=== PATIENT | female | born 1955 | race Caucasian/White ===

== ENCOUNTER → 2020-07-11 14:57 | Outpatient (BNVA) | payer OTHER, SELFPAY | PROVIDERS: Family Provider Nurse Practitioner Family; Visit Provider Nurse Practitioner Family | DX: Z20.828 Contact with and (suspected) exposure to other viral communicable diseases (principal); J22 Unspecified acute lower respiratory infection | CPT/HCPCS: 87635 ==

== ENCOUNTER → 2021-01-12 12:39 | Outpatient (BNVA) | payer MEDICARE, SELFPAY | PROVIDERS: Family Provider Nurse Practitioner Family; PCP Nurse Practitioner Family; Visit Provider Nurse Practitioner Family | DX: E55.9 Vitamin D deficiency, unspecified (principal); F32.9 Major depressive disorder, single episode, unspecified; J32.9 Chronic sinusitis, unspecified; Z79.899 Other long term (current) drug therapy; B00.2 Herpesviral gingivostomatitis and pharyngotonsillitis; B00.9 Herpesviral infection, unspecified; Z13.6 Encounter for screening for cardiovascular disorders; I10 Essential (primary) hypertension; K21.9 Gastro-esophageal reflux disease without esophagitis | CPT/HCPCS: 80053; 80061; 81003; 82306; 83036; 84439; 84443; 85025 ==

== ENCOUNTER 2022-01-12 14:32 | Outpatient (CLI) | payer MEDICARE, SELFPAY ==
--- NOTE | 2022-01-12 14:48 | MM_ITS ---
WS: [email or web address] SCREENING 3D TOMOSYNTHESIS DIGITAL MAMMOGRAM WITH CAD HISTORY: SCREENING COMPARISON: 03/26/2019 and 06/13/2017 Bilateral CC and MLO views submitted. Computer aided detection analyzed. Breast composition: There are scattered areas of fibroglandular density. Area of distortion and very subtle calcifications in the posterior upper outer quadrant of the RIGHT breast. There is additional benign 9 mm nodule in the LEFT breast posteriorly at 3:00. MM/[place] [id number] IMPRESSION: BI-RADS: 0-Incomplete: Need additional imaging evaluation FOLLOW UP: Need Additional Imaging RIGHT breast: Spot compression views (CC and MLO). True ML. Ultrasound to follo w if abnormality persists. First attempt spot compression views. If there are calcifications within this d istortion magnification view should be obtained also.
== END 2022-01-12 14:33 | disposition home or self-care (01) ==
PROVIDERS: PCP Nurse Practitioner Family; Visit Provider Nurse Practitioner Family
DX: Z12.31 Encounter for screening mammogram for malignant neoplasm of breast (principal)
CPT/HCPCS: 77063; 77067

== ENCOUNTER 2022-03-20 14:41 | Outpatient (CLI) | payer MEDICARE, SELFPAY ==
--- NOTE | 2022-03-20 14:53 | MM_ITS ---
WS: [email or web address] ADDITIONAL VIEWS RIGHT MAMMOGRAM WITH DIGITAL BREAST TOMOSYNTHESIS. HISTORY: Distortion and calcifications. COMPARISON: 01/12/2022, 03/26/2019 Notification views RIGHT breast in CC, MLO projections and true ML submitted with digital breast efrain synthesis and SM. There some very vague calcifications in the upper-outer quadrant of the RIGHT breast in a posterior d epth. These are very vague but stereotactic biopsy attempt is recommended. MM/[place] [id number] IMPRESSION: BI-RADS: 4-Suspicious Finding-Biopsy Should Be Considered FOLLOW UP: Biopsy Recommended Stereotactic biopsy recommended of RIGHT breast calcifications. These may not b e visible by stereotactic biopsy but should be attempted.
== END 2022-03-20 14:42 | disposition home or self-care (01) ==
PROVIDERS: Visit Provider Nurse Practitioner Family
DX: R92.8 Other abnormal and inconclusive findings on diagnostic imaging of breast (principal)
CPT/HCPCS: 77061

== ENCOUNTER 2022-04-10 12:19 | Outpatient (CLI) | payer MEDICARE, SELFPAY ==
--- NOTE | 2022-04-10 12:41 | MM_ITS ---
WS: [email or web address] Mammogram, limited. HISTORY: Suspicious calcifications, very vague RIGHT breast in the posterior depth. COMPARISON: 03/20/2022 and 01/12/2022. Unable to definitely localize these suspicious calcifications by stereotactic imaging for biopsy. The se calcifications are very vague and this was a concern upon the initial recommendation. Suggest 6 mo nth follow-up or if the patient requests localization and surgical removal. I explained these finding s in detail to the patient. MM/[place] [id number] IMPRESSION: BI-RADS 3. Recommend 6 month diagnostic RIGHT mammogram follow-up. Unable to localize the very vague calcifications in the posterior RIGHT breast for stereotactic biopsy .
== END 2022-04-10 12:20 | disposition home or self-care (01) ==
LOC: RAD 12:19
PROVIDERS: Visit Provider Nurse Practitioner
DX: R92.8 Other abnormal and inconclusive findings on diagnostic imaging of breast (principal)
CPT/HCPCS: 77061; 77065

== ENCOUNTER → 2022-07-16 16:04 | Outpatient (BNVA) | payer MEDICARE, SELFPAY | PROVIDERS: PCP Nurse Practitioner; Visit Provider Nurse Practitioner | DX: R50.9 Fever, unspecified (principal) | CPT/HCPCS: 87400 ==

== ENCOUNTER 2022-11-13 14:34 | Outpatient (CLI) | payer MEDICARE, SELFPAY ==
--- NOTE | 2022-11-13 14:45 | MM_ITS ---
WS: [email or web address] DIAGNOSTIC RIGHT DIGITAL TOMOSYNTHESIS MAMMOGRAPHY WITH CAD. HISTORY: follow up 6 month for calcifications. COMPARISON: 04/10/2022, 03/20/2022, 01/12/2022 Technique: CC, MLO and ML views. Magnification views RIGHT CC and MLO. Breast composition: There are scattered areas of fibroglandular density. Calcifications previously d escribed in the upper-outer quadrant of the RIGHT breast are very difficult to visualize. No increase in number or size of these calcifications. No distortion of soft tissue. MM/[place] [id number] IMPRESSION: BI-RADS: 3-Probably Benign FOLLOW UP: 6 Month Follow-up Patient to return in 6 months for bilateral mammogram. Magnification views can be obtained of the calcifications in the RIGHT breast. Very nonspecific and les s concerning on today's study.
== END 2022-11-13 14:35 | disposition home or self-care (01) ==
LOC: RAD 14:38
PROVIDERS: PCP Nurse Practitioner; Visit Provider Nurse Practitioner
DX: R92.8 Other abnormal and inconclusive findings on diagnostic imaging of breast (principal); R92.1 Mammographic calcification found on diagnostic imaging of breast
CPT/HCPCS: 77061; G0279

== ENCOUNTER → 2023-02-28 11:34 | Outpatient (BNVA) | payer MEDICARE, SELFPAY | PROVIDERS: PCP Nurse Practitioner; Visit Provider Nurse Practitioner | DX: I10 Essential (primary) hypertension (principal); Z79.899 Other long term (current) drug therapy; E55.9 Vitamin D deficiency, unspecified | CPT/HCPCS: 80053; 80061; 81000; 82306; 83036; 84443; 85025 ==

== ENCOUNTER 2023-08-20 11:03 | Outpatient (CLI) | payer MEDICARE, SELFPAY ==
--- NOTE | 2023-08-20 11:00 | MM_ITS ---
WS: [email or web address] DIAGNOSTIC BILATERAL DIGITAL BREAST TOMOSYNTHESIS MAMMOGRAPHY WITH CAD HISTORY: Follow-up calcifications RIGHT breast. COMPARISON: None available. TECHNIQUE: Bilateral craniocaudad, mediolateral oblique, and mediolateral views are submitted with to davin and ANURADHA. Magnification views RIGHT breast calcifications. Computer aided detection utilize d. Breast composition: There are scattered areas of fibroglandular density. The calcifications in the up per outer quadrant of the RIGHT breast are very difficult to visualize. These calcifications are stab le. There is no group or cluster of calcifications that identify with certainty. Stable 8 mm lobulate d mass lateral LEFT breast at 9:00. IMPRESSION: MM/[place] [id number] BI-RADS: 3-Probably Benign FOLLOW UP: 1 Year Follow-up Recommend additional magnification views in the calcifications upper outer quad rant of the RIGHT breast in 1 year. At this time these calcifications are extre raul vague and cannot be identified on all images.
== END 2023-08-20 11:04 | disposition home or self-care (01) ==
LOC: RAD 11:05
PROVIDERS: PCP Nurse Practitioner; Visit Provider Nurse Practitioner Family
DX: R92.8 Other abnormal and inconclusive findings on diagnostic imaging of breast (principal); R92.1 Mammographic calcification found on diagnostic imaging of breast
CPT/HCPCS: 77062; G0279

== ENCOUNTER → 2023-10-30 14:08 | Outpatient (BNVA) | payer MEDICARE, SELFPAY | PROVIDERS: PCP Nurse Practitioner; Visit Provider Nurse Practitioner Family | DX: E78.2 Mixed hyperlipidemia (principal); I10 Essential (primary) hypertension; E55.9 Vitamin D deficiency, unspecified; Z79.899 Other long term (current) drug therapy; D64.9 Anemia, unspecified | CPT/HCPCS: 80053; 80061; 81003; 82306; 82607; 82746; 83036; 83550; 84443; 85025 ==

== ENCOUNTER 2024-09-09 18:58 | Emergency (ER) | payer MEDICARE, SELFPAY ==
[2024-09-09 19:02] VITALS: BP 187/98; PULSE 80; RESP 18; TEMP 36.5; O2SAT 98; BMI 30.5
[2024-09-09] MEDS: tetracaine 0.5% Op Soln 4 mL Btl 1 DROP EYE-LEFT (20:07)
[2024-09-09] MEDS: fluorescein 1 mg Strip EYE-LEFT (20:08)
--- NOTE | 2024-09-09 20:41 | ED_ITS ---
HPI - Skin/Abscess/Foreign Bdy General: Chief complaint: Skin/Abscess/Foreign Body Stated complaint: Shingles on face into eye Time Seen by Provider: 09/09/24 20:07 Source: patient Mode of arrival: ambulatory Limitations: no limitations History of Present Illness: Patient presents emergency department today accompanied by her family for evaluation treatment of concerns for acute worsening and ocular involvement of shingles. Patient was seen and evaluated in the urgent care on 09/01 and appropriately diagnosed with onset of shingles rash to the left side of her face. She was started on valacyclovir 1 g 3 times a day as well as gabapentin. Patient was concerned as her left eye was becoming red and she was complaining of some visual haziness. They did warn her that if it was getting worse to be seen and reevaluated. She went back to the clinic today and the nurse practitioner told her she needed to come to the emergency department. Patient wears glasses but does not wear contact lenses. She also indicates she is having some left ear discomfort now without any active draining. Still complains of some low-grade fevers. Related Data Previous Rx's Medication Instructions Recorded albuterol sulfate 90 mcg/actuation 1 inh inhalation Q6H PRN shortness 08/14/23 aerosol inhaler (ProAir HFA) of breath or wheezing 30 days #8.5 grams fluticasone propionate 50 2 spray intranasal DAILY 30 days 11/06/23 mcg/actuation nasal #16 grams spray,suspension (Flonase Allergy Relief) ibuprofen 800 mg tablet 800 mg PO Q8H PRN pain 30 days #90 11/06/23 tabs losartan 25 mg tablet See Rx Instructions .Route 11/06/23 .COMPLEX #90 tabs omeprazole 40 mg capsule,delayed 40 mg PO DAILY 30 days #90 caps 11/06/23 release rosuvastatin 10 mg tablet (Crestor) 10 mg PO DAILY #90 tabs 11/06/23 valacyclovir 1 gram tablet See Rx Instructions PO DAILY #30 11/06/23 tabs ondansetron HCl 4 mg tablet 4 mg PO Q8H PRN nausea and 02/12/24 vomiting #10 tabs sucralfate 1 gram tablet (Carafate) 1 g PO BID reflux/heartburn #60 02/12/24 tabs citalopram 40 mg tablet See Rx Instructions .Route 03/30/24 .COMPLEX #30 tabs cholecalciferol (vitamin D3) 1,250 See Rx Instructions .Route 07/27/24 mcg (50,000 unit) capsule .COMPLEX #4 caps gabapentin 100 mg capsule 100 mg PO BEDTIME #30 caps 09/01/24 valacyclovir 1 gram tablet 1,000 mg PO TID #21 tabs 09/01/24 erythromycin 5 mg/gram (0.5 %) eye 0.5 inch ophthalmic (eye) Q6H #3.5 09/09/24 ointment (3.5 gram tube) grams gabapentin 300 mg capsule 300 mg PO Q8H 10 days #30 caps 09/09/24 Allergies Allergy/AdvReac Type Severity Reaction Status Date / Time ceftriaxone [From Rocephin] Allergy Intermediate swelling Verified 09/01/24 14:46 clarithromycin [From Biaxin] Allergy RASH Verified 09/01/24 14:46 Review of Systems General: Reports: 10 or more systems reviewed and unremarkable except in HPI and below PFSH ED PFSH: Medical History Herpes zoster virus infection of face and ear nerves Cough Shortness of breath Otitis media Abnormal mammogram of right breast Acute bacterial sinusitis Lower respiratory infection Mixed hyperlipidemia Hypertension screen Medication management 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 Viral respiratory infection Primary HSV infection of mouth Elevated hemoglobin A1c Melanoma Fatigue GERD (gastroesophageal reflux disease) Hypertension Depression Vitamin D deficiency Surgical History Status post cholecystectomy Status post hysterectomy Status post rotator cuff repair Status post tubal ligation Family History Other Diabetes Hypertension Social History Smoking and tobacco/nicotine status: never used tobacco/nicotine Alcohol intake: never Substance/Drug Use: never Physical Exam Const: COMMON NORMALS: no acute distress, patient oriented x3 and alert HENMT: COMMON NORMALS: normocephalic, atraumatic, hearing grossly normal bilaterally and moist oral mucous membranes HEAD & SCALP: normocephalic and atraumatic OTHER: Left TM is slightly erythematous but no bulging and no purulent accumulation noted. Patient has significant erythema affecting the anterior portion of the left EAC. No cerumen present. No obvious blistering or signs of draining in th e canal. Eye: OTHER: Patient has conjunctival injections noted in the left eye. Lower eyelid does have developing rash and bumps within the lash line. After tetracaine drops, patient's lids were everted without signs of any foreign material or internal styes. Fluorescein and Barclay lamp exam revealed no signs of any dendritic uptake or corneal ulceration. Neck/C-Spine: COMMON NORMALS: no JVD Lymph: OTHER: Patient with some enlarged and tender lymph nodes at the angle of the mandible below the left ear. Resp: COMMON NORMALS: normal respiratory effort, No retractions and No use of accessory muscles Cardio: COMMON NORMALS: no JVD, regular rate and regular rhythm RATE: regular rate RHYTHM: regular rhythm GI: COMMON NORMALS: Normal to inspection, nondistended, normoactive bowel sounds present : COMMON NORMALS: Yes no CVA tenderness BLADDER/KIDNEY EXAM: Yes no CVA tenderness Back/Pelvis: COMMON NORMALS: no CVA tenderness and thoraco-lumbar ROM normal Extremity: COMMON NORMALS: normal to inspection, full ROM and capillary refill normal Neuro: COMMON NORMALS: patient oriented x3 SENSORIUM/ORIENTATION: Yes alert Psych: COMMON NORMALS: mental status grossly normal, cooperative, normal affect and activity/motor behavior normal Course Vital Signs: Vital signs: Vital Signs Temperature 97.7 F 09/09/24 19:02 Pulse Rate 78 09/09/24 21:27 Respiratory Rate 18 09/09/24 19:02 Blood Pressure 191/88 09/09/24 21:27 Pulse Oximetry 91 09/09/24 21:27 Oxygen Delivery Me thod Room Air 09/09/24 19:02 MDM - Skin/Abscess/Foreign Bdy Medicial Decision Making Patient presents today with concerns of worsening rash to the left side of her face and redness of the eye. Patient states she was told she has shingles and has been taking her medication as prescribed but, admits she is not sure what is normal and not as this is her first outbreak of shingles. Explained to her that I do think she has some rash developing in her ear which, can happen with diane ngles. She also has some cervical lymphadenopathy around the inferior portion of her ear which I explained can be reactive to the infection as well. Given the patient's redness in the eye, we did perform a Barclay lamp examination. However, I do not see any uptake of the dye in dendritic fashion. However, I did reach out to ophthalmology and spoke with Helen GIFFORD with [facility] to discuss the patient's presentation here in the emergency department. He encouraged adding erythromycin more for soothing of the irritation of the conjunctiva but, patient should continue her antiviral therapy. Patient has an allergy to clarithromycin which she states she developed a rash in the past. We did discuss the potential for a reaction to erythroid myosin but, she is willing to try the ointment for her symptoms and will watch for any signs of sensitivity or allergy to the medication. She is to call the ophthalmology clinic first thing in the morning to schedule follow-up appointment. Patient verbalizes her understanding and agreement to treatment plan. Just prior to discharge, patient family was asking if they could increase her gabapentin. Patient confirms she is only on 100 mg at night before bed. As patient has been on this medication now for a few days, we can increase her dosing. As she still has the medication at home, discussed a 300 mg dose of gabapentin tonight. Patient can continue using her 100 mg tablets, 3 at a time to equal a 300 mg dose 2-3 times a day. I provided a prescription for gabapentin 300 mg capsules sent to her preferred pharmacy which she can pepper picker and continue to use when she runs out of her 100 mg capsules. Did discuss potential side effects of this medication. Family and patient verbalized understanding. Differential Diagnosis Likely herpes zoster; Unlikely abscess of skin or subcutaneous tissue, allergic reaction to drug, insect bites or impetigo No radiology studies performed this visit Discharge Plan Discharge Patient Disposition: Home Clinical Impression: Herpes zoster virus infection of face and ear nerves Condition: Stable Prescriptions: New erythromycin 5 mg/gram (0.5 %) ointment 0.5 inch ophthalmic (eye) Q6H Qty: 3.5 0RF gabapentin 300 mg capsule 300 mg PO Q8H 10 Days Qty: 30 0RF No Action ondansetron HCl 4 mg tablet 4 mg PO Q8H PRN (Reason: nausea and vomiting) Qty: 10 0RF sucralfate [Carafate] 1 gram tablet 1 g PO BID Qty: 60 5RF valacyclovir 1 gram tablet 1,000 mg PO TID Qty: 21 0RF gabapentin 100 mg capsule 100 mg PO BEDTIME Qty: 30 0RF albuterol sulfate [ProAir HFA] 90 mcg/actuation HFA aerosol inhaler 1 inh inhalation Q6H PRN (Reason: shortness of breath or wheezing) 30 Days Qty: 8.5 0RF fluticasone propionate [Flonase Allergy Relief] 50 mcg/actuation spray,suspension 2 spray INTRANASAL DAILY 30 Days Qty: 16 2RF Rx Instructions: administer into each nostril for 2 weeks, then 1 spray for 2 weeks, then PRN ibuprofen 800 mg tablet 800 mg PO Q8H PRN (Reason: pain) 30 Days Qty: 90 2RF losartan 25 mg tablet See Rx Instructions .ROUTE .COMPLEX Qty: 90 3RF Dose Instruction: Take 1 tablet by mouth once daily for 30 days Rx Instructions: Take 1 tablet by mouth once daily for 30 days omeprazole 40 mg capsule,delayed release(DR/EC) 40 mg PO DAILY 30 Days Qty: 90 3RF rosuvastatin [Crestor] 10 mg tablet 10 mg PO DAILY Qty: 90 0RF valacyclovir 1 gram tablet See Rx Instructions PO DAILY Qty: 30 5RF Rx Instructions: 1 tab daily during outbreak, and PRN PO daily; citalopram 40 mg tablet See Rx Instructions .ROUTE .COMPLEX Qty: 30 2RF Dose Instruction: Take 1 tablet by mouth once daily Rx Instructions: Take 1 tablet by mouth once daily cholecalciferol (vitamin D3) 1,250 mcg (50,000 unit) capsule See Rx Instructions .ROUTE .COMPLEX Qty: 4 0RF Dose Instruction: Take 1 capsule by mouth once a week Rx Instructions: Take 1 capsule by mouth once a week Discharge Orders: Discharge ED (Routine); Ordered 09/09/24 Ordered By: Katarzyna Jeronimo Referrals: Darek Rogers, ENVIRONMENTAL PROTECTION INSPECTOR [Primary Care Provider] - Discharge Diet: Usual diet Discharge Activity: Increase activity as tolerated Patient Instructions: Shingles (ED) Activity Restrictions/Additional Instructions: I agree to the original diagnosis of shingles that you received from the urgent care as well as your treatment plan. Unfortunately, as the shingles does affect your face, can also affect your eye and inside of your ear. I do think you are developing some redness inside of your ear consistent with a shingles rash. Fortunately, at this time, on your eye examination I do not see any signs of any ulcerations or herpetic dendrites on your cornea. I did reach out to our high school music teacher on-call was able to speak with Martín Cervantes PA-C with [facility] here in [facility]. He encourages you to continue to take your antiviral therapy and, recommended using erythromycin ointment for soothing and comfort of the conjunctival membrane. As we discussed, erythromycin is in the same family medications as clarithromycin which you have listed as a allergy/sensitivity in the past. I want you to carefully watch for any sudden swelling of your eyelids which could indicate a hypersensitivity reaction to this appointment. You need to be seen and reevaluated if you develop signs of a hypersensitivity to the medication here in the emergency department. Otherwise, I would like you to call the high school music teacher first thing in the morning to schedule your follow-up appointment. [facility] Martín Payne PA-C [id number] [facility] [id number] Stand Alone Forms: Work/School Release Coding Level of Care Code ED Convertible Top Installer for Shashi Panda
[2024-09-09] MEDS: erythromycin Op Oint 1 gm 1 APPLIC EYE-LEFT (21:01)
[2024-09-09 21:27] VITALS: BP 191/88; PULSE 78; O2SAT 91
== END 2024-09-09 21:30 | disposition home or self-care (01) ==
PROVIDERS: Emergency Provider Physician Assistant; PCP Nurse Practitioner Family
DX: B02.8 Zoster with other complications (principal); E78.2 Mixed hyperlipidemia; I10 Essential (primary) hypertension
CPT/HCPCS: 99283

== ENCOUNTER → 2024-11-10 11:56 | Outpatient (BNVA) | payer MEDICARE, SELFPAY | PROVIDERS: PCP Nurse Practitioner Family; Visit Provider Nurse Practitioner Family | DX: B00.9 Herpesviral infection, unspecified (principal); J32.9 Chronic sinusitis, unspecified; I10 Essential (primary) hypertension; E55.9 Vitamin D deficiency, unspecified; E78.2 Mixed hyperlipidemia; Z79.899 Other long term (current) drug therapy | CPT/HCPCS: 80053; 80061; 81003; 82306; 83036; 84443; 85025 ==

== ENCOUNTER → 2025-03-18 15:24 | Outpatient (BNVA) | payer MEDICARE, SELFPAY | PROVIDERS: PCP Nurse Practitioner Family; Visit Provider Nurse Practitioner Family | DX: N39.0 Urinary tract infection, site not specified (principal); Z79.899 Other long term (current) drug therapy | CPT/HCPCS: 81003; 87086 ==

== ENCOUNTER → 2025-05-12 09:39 | Outpatient (BNVA) | payer MEDICARE, SELFPAY | PROVIDERS: PCP Nurse Practitioner Family; Visit Provider Nurse Practitioner Family | DX: R10.12 Left upper quadrant pain (principal); R73.09 Other abnormal glucose; R68.89 Other general symptoms and signs | CPT/HCPCS: 74018; 80053; 81003; 82150; 83036; 83690; 85025; 87400; 87426 ==

== ENCOUNTER 2025-07-07 10:23 | Emergency (ER) | payer MEDICARE, SELFPAY ==
[2025-07-07 10:29] VITALS: BP 203/90; PULSE 89; RESP 18; TEMP 36.8; O2SAT 97
--- OUTSIDE RECORDS SUMMARY | 2025-07-07 10:29 | XMS_ITS | Encounter Summary ---
Author Organization [facility] Address [address] [place] [address] Care Team Providers Care Telephone Installer Name Role Phone Mendel Bonds MD Primary Care Provider [phone] Encounter Details Date Type Department Care Team (Late st Contact Info) Description 11/18/2002 Outpatient Historical [facility] Urology- [address]tr[address], 3[address] [place] [address] Jatinder Huddleston MD [address] [address] URINARY FREQUENCY (Primary Dx); URGE & STRESS MIXED INCONTINENCE; NOCTURIA; FEMALE GENITAL SYMPTOMS NOS Social History Tobacco Use Types Packs/Day Years Used Date Smoking Tobacco: Never Assessed Comments Unknown Sex and Gender Information Value Date Recorded Sex Assigned at Not on file 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
--- OUTSIDE RECORDS SUMMARY | 2025-07-07 10:29 | XMS_ITS | Encounter Summary ---
Author Organization [facility] Address [address] [place] [address] Care Team Providers Care French Translator Name Role Phone Mendel Bonds MD Primary Care Provider [phone] Encounter Details Date Type Department Care Team (Latest Contact Info) Description 09/28/2004 Outpatient Historical [facility] Medicine [address] [phone] Chelsea Chacon NP NO ADDRESS ON FILE ACUTE SINUSITIS NOS (Primary Dx) Social History Tobacco Use Types Packs/Day Years Used Date Smoking Tobacco: Never Assessed Comments Unknown Sex and Gender Information Value Date Recorded Sex Assigned at Not on file 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
--- OUTSIDE RECORDS SUMMARY | 2025-07-07 10:29 | XMS_ITS | Encounter Summary ---
Author Organization [facility] Address [address] [place] [address] Care Team Providers Care Sushi Chef Name Role Phone Mendel Bonds MD Primary Care Provider [phone] Encounter Details Date Type Department Care Team (Latest Contact Info) Description 09/28/2005 Outpatient Historical [facility] Family Medicine- [address] [place] [address] Chelsea Chacon NP NO ADDRESS ON FILE HERPETIC KARIN (Primary Dx) Social History Tobacco Use Types Packs/Day Years Used Date Smoking Tobacco: Never Assessed Comments Unknown Sex and Gender Information Value Date Recorded Sex Assigned at Not on file 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
--- OUTSIDE RECORDS SUMMARY | 2025-07-07 10:29 | XMS_ITS | Encounter Summary ---
Author Organization [facility] Address [address] [place] [address] Care Team Providers Care Clothing Presser Name Role Phone Mendel Bonds MD Primary Care Provider [phone] Encounter Details Date Type Department Care Team (Latest Contact Info) Description 04/18/2005 Outpatient Historical [facility] General and Trauma Surgery-[address] [place] [address] Anthony Cruz S, DO [address] [place] [address] Benign remy breast (Primary Dx) Social History Tobacco Use Types Packs/Day Years Used Date Smoking Tobacco: Never Assessed Comments Unknown Sex and Gender Information Value Date Recorded Sex Assigned at Not on file 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
--- OUTSIDE RECORDS SUMMARY | 2025-07-07 10:29 | XMS_ITS | Encounter Summary ---
Author Organization [facility] Address [address] [place] [address] Care Team Providers Care Chop Saw Operator Name Role Phone Mendel Bonds MD Primary Care Provider [phone] [phone] Encounter Details Date Type Department Care Team (Latest Contact Info) Description 01/05/2003 Outpatient Historical [facility] [address] [place] [address] [place] [address] Juan C Landaverde MD [address] [address] PREOP EXAM OTHER SPECIFIED (Primary Dx) Social History Tobacco Use Types Packs/Day Years Used Date Smoking Tobacco: Never Assessed Comments Unknown Sex and Gender Information Value Date Recorded Sex Assigned at Not on file 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
--- OUTSIDE RECORDS SUMMARY | 2025-07-07 10:29 | XMS_ITS | Encounter Summary ---
Author Organization [facility] Address [address] [place] [address] Care Team Providers Care Hogshead Stripper Name Role Phone Mendel Bonds MD Primary Care Provider [phone] Encounter Details Date Type Department Care Team (Latest Contact Info) Description 12/12/2004 Outpatient Historical [facility] Juan C Landaverde MD [address] [address] ROUTINE WEB CONTENT & SOCIAL MEDIA MANAGER EXAMINATION (Primary Dx) Social History Tobacco Use Types Packs/Day Years Used Date Smoking Tobacco: Never Assessed Comments Unknown Sex and Gender Information Value Date Recorded Sex Assigned at Not on file 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
--- OUTSIDE RECORDS SUMMARY | 2025-07-07 10:29 | XMS_ITS | Encounter Summary ---
Author Organization [facility] Address [address] [place] [address] Care Team Providers Care Office Automation Clerk Name Role Phone Mendel Bonds MD Primary Care Provider +1 -[phone] Encounter Details Date Type Department Care Team (Late st Contact Info) Description 02/13/2006 Outpatient Historical [facility] Refugio Moore [address] [place] [address] Connie Dykes MD [address] [place] [phone] Other Screening Mammogram (Primary Dx) Social History Tobacco Use Types Packs/Day Years Used Date Smoking Tobacco: Never Assessed Comments Unknown Sex and Gender Information Value Date Recorded Sex Assigned at Not on file 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
--- OUTSIDE RECORDS SUMMARY | 2025-07-07 10:29 | XMS_ITS | Encounter Summary ---
Author Organization [facility] Address [address] [place] [address] Care Team Providers Care Casino Floor Person Name Role Phone Mendel Bonds MD Primary Care Provider +1 [phone] Encounter Details Date Type Department Care Team (Late st Contact Info) Description 03/16/2010 Ancillary Orders [facility] Imaging External Read [address] [place] [address] Connie Dykes MD [address] [place] [phone] Screening Mammogram Social History Tobacco Use Types Packs/Day Years Used Date Smoking Tobacco: Never Alcohol Use Standard Drinks/Week Comments No 0 (1 standard drink = 0.6 oz pur e alcohol) Comments No Sex and Gender Information Value Date Recorded Sex Assigned at Not on file 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 The patient had a benign needle core biopsy on the left in Feb, 2005. Comparison is made with the prior exams of 02/13/06 and 02/17/07. No change is seen on the right. No suspicious calcifications are seen. However, the previously biopsied nodule upper outer on the left appears slightly more prominent and I would recommend further evaluation. This mammogram was also analyzed by the Computer Aided Detection system (CAD), R2 ImageChecker, Version 3.1. CONCLUSION: I would recommend the patient return initially for left breast ultrasound. Additional magnified views may be needed following the ultrasound if the nodule appears changed. Procedure Note Jen Flynn MD - 03/21/2010 SCREENING MAMMOGRAM ([facility]): 03/07/10 Bilateral craniocaudal and oblique views of the breasts show averagebreast density. The patient had a benign needle core biopsy on the leftin Feb, 2005. Comparison is made with the prior exams of 02/13/06 and02/17/07. No change is seen on the right. No suspicious calcificationsare seen. However, the previously biopsied nodule upper outer on the leftappears slightly more prominent and I would recommend furtherevaluation. This mammogram was also analyzed by the Computer Aided Detection system(CAD), R2 ImageChecker, Version 3.1. CONCLUSION: I would recommend the patient return initially for leftbreast ultrasound. Additional magnified views may be needed following theultrasound if the nodule appears changed. Connie Dykes MD MAMMO ORDERABLES Final Result documented in this encounter Visit Diagnoses Diagnosis Screening mammogram Other screening mammogram documented in this encounter Care Teams Casino Floor Person Relationship Specialty Start Date End Date Mendel Bonds MD [address] [phone] PCP - General Family Practice 12/31/17 documented as of this encounter
--- OUTSIDE RECORDS SUMMARY | 2025-07-07 10:29 | XMS_ITS | Encounter Summary ---
Author Organization [facility] Address [address] [place] [address] Care Team Providers Care Die Maintenance Technician Name Role Phone Mendel Bonds MD Primary Care Provider +1 [phone] Encounter Details Date Type Department Care Team (Latest Contact Info) Description 10/23/2002 Outpatient Historical [facility] Family Medicine- [address] [place] [address] Leonel Horowitz DO NO ADDRESS ON FILE ACUTE PHARYNGITIS (Primary Dx); HERPES SIMPLEX NOS Social History Tobacco Use Types Packs/Day Years Used Date Smoking Tobacco: Never Assessed Comments Unknown Sex and Gender Information Value Date Recorded Sex Assigned at Not on file Legal Sex Female 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
--- OUTSIDE RECORDS SUMMARY | 2025-07-07 10:29 | XMS_ITS | Encounter Summary ---
Author Organization [facility] Address [address] [place] [address] Care Team Providers Care Line Palletizer Name Role Phone Mendel Bonds MD Primary Care Provider +1 -[phone] Encounter Details Date Type Department Care Team (Latest Contact Info) Description 01/17/2006 Outpatient Historical [facility] Medicine [address] [address] Chelsea Chacon NP NO ADDRESS ON FILE Allergy, Unspecified not Elsewhere Classified (Primary Dx) Social History Tobacco Use Types Packs/Day Years Used Date Smoking Tobacco: Never Assessed Comments Unknown Sex and Gender Information Value Date Recorded Sex Assigned at Not on file Legal Sex Female 3:02 AM SAP BI DEVELOPER Gender Identity Not on file Sexual Orientation Not on file documented as of this encounter Plan of Treatment Not on file documented as of this encounter Visit Diagnoses Diagnosis Allergy, unspecified not elsewhere classified- Primary documented in this encounter Care Teams Line Palletizer Relationship Specialty Start Date End Date Mendel Bonds MD [address] [phone] PCP - General Family Practice 12/31/17 documented as of this encounter
--- OUTSIDE RECORDS SUMMARY | 2025-07-07 10:29 | XMS_ITS | Encounter Summary ---
Author Organization [facility] Address [address] [place] [address] Care Team Providers Care Siding Mechanic Name Role Phone Mendel Bonds MD Primary Care Provider +1 [phone] Encounter Details Date Type Department Care Team (Latest Contact Info) Description 05/21/2002 Outpatient Historical [facility] Medicine [address] [phone] Jose Alberto Becerril MD ABDOMINAL PAIN RUQ (Primary Dx) Social History Tobacco Use Types Packs/Day Years Used Date Smoking Tobacco: Never Assessed Comments Unknown Sex and Gender Information Value Date Recorded Sex Assigned at Not on file Legal Sex Female 3:02 AM LOST AND FOUND CLERK Gender Identity Not on file Sexual Orientation Not on file documented as of this encounter Plan of Treatment Not on file documented as of this encounter Visit Diagnoses Diagnosis Abdominal pain, right upper quadrant- Primary documented in this encounter Care Teams Siding Mechanic Relationship Specialty Start Date End Date Mendel Bonds MD [address] [phone] PCP - General Family Practice 12/31/17 documented as of this encounter
--- OUTSIDE RECORDS SUMMARY | 2025-07-07 10:29 | XMS_ITS | Clinical Summary ---
Author Organization [facility] Address [address] [place] [address] [address] [place] [address] Care Team Providers Care Shoulder Boner Name Role Phone Mendel Bonds MD Primary Care Provider +1 [phone] Allergies Active Allergy Reactions Criticality Noted Date Comments Atorvastatin Itching,Other (See Comments) Low 02/15 Clarithromycin Rash Low 08/16/2009 Medications pseudoephedrine (SUDAFED) 30 mg tabletIndications :Sinusitis, unspecified chronicity, unspecified location Take 2 Tablets (60 mg) by mouth every 6 hours as needed for Congestion. 20 Tablet 7 Active fexofenadine (MONA) 180 mg tabletIndications :Sinusitis, unspecified chronicity, unspecified location Take 1 Tablet (180 mg) by mouth daily. 30 Tablet 5 7 Active fluticasone (FLONASE) 50 mcg/spray Kiester, SuspensionIndicat ions:Sinusitis, unspecified chronicity, unspecified location Administer 1 Kiester in each nostril daily. 16 Gram 7 Active promethazine-dext romethorphan (PHENERGAN-DM) 6.25-15 mg/5 mL syrupIndications: Cough Take 5 mL by mouth every 4 hours as needed for Cough. 120 mL 1 8 Active citalopram (CeleXA) 20 mg tabletIndications :Anxiety disorder, unspecified type Take 1 Tablet (20 mg) by mouth daily at bedtime. 30 Tablet 11 8 Active acyclovir (ZOVIRAX) 200 mg capsuleIndication s:Herpes zoster without complication Take 2 Capsules (400 mg) by mouth daily. 60 Capsule 5 8 Active hydroCHLOROthiazi de 25 mg tabletIndications :Essential hypertension TAKE ONE TABLET (25MG) BY MOUTH ONCE DAILY. 90 Tablet 3 8 Active omeprazole (PriLOSEC) 20 mg Capsule, Delayed Release(E.C.)Edna cations:Gastroeso phageal reflux disease, esophagitis presence not specified TAKE ONE CAPSULE BY MOUTH ONCE DAILY. 30 Capsule 11 8 Active pravastatin (PRAVACHOL) 20 mg tablet Take 1 Tablet (20 mg) by mouth daily. 30 Tablet 3 8 Active pravastatin (PRAVACHOL) 20 mg tablet Take 1 Tablet (20 mg) by mouth daily. 30 Tablet 3 8 Active ibuprofen (MOTRIN) 800 mg tablet TAKE 1 TABLET BY MOUTH EVERY 8 HOURS NEEDED FOR PAIN 30 Tablet 2 8 Active Hospital, Clinic, or Other Facility Administered Medication Ordered Dose Route Frequency Start Date End Date Status methylPREDNISolone acetate (DEPO-Medrol) injection 80 mgIndications:Sciatica of left side 80 mg IM ONE TIME ONLY 02/08/2017 Active Active Problems Problem Noted Date Diagnosed Date History of melanoma 02/18/2018 Right shoulder pain 01/06/2016 Overview (01/06/2016): Per patient had a tear, and now has hardware HTN (hypertension) 08/20/2013 Skin lesion of left lower limb 08/10/2011 Hyperlipidemia 12/15/2010 GERD (gastroesophageal reflux disease) 1 Anxiety disorder 03/31/2010 Other abnormal Papanicolaou smear of vagina and vaginal HPV Family History Medical History Relation Name Comments Heart Disease Brother High Cholesterol Brother Heart Disease Father High Cholesterol Father Heart Disease Mother High Cholesterol Mother Breast Cancer Other 1 paunt Heart Disease Other 1 paunt Breast Cancer Other 2 Great maunt Breast Cancer Other 3 1st cousin pat. Colon Cancer Neg Hx Relation Name Status Comments Brother Father Mother Alive Other 1 paunt Other 2 Great maunt Alive Other 3 1st cousin pat. 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 Gender Identity Not on file Sexual Orientation Not on file Occupation Industry Job Start Date Job End Date Not on file Not on file Not on file Not on file Last Filed Vital Signs Vital Sign Reading Time Taken Comments Blood Pressure 137/82 02/13/2018 9:17 AM CDT Pulse 68 02/13/2018 9:17 AM CDT Temperature 36.4 C (97.5 F) 02/13/2018 9:17 AM CDT Respiratory Rate 14 02/13/2018 9:17 AM CDT Oxygen Saturation 93% 02/13/2018 9:17 AM CDT Inhaled Oxygen Concentration - - Weight 86.4 kg (190 lb 6.4 oz) 02/13/2018 9:17 A M CDT Height 160 cm (5' 3 ) 02/13/2018 9:17 AM CDT Body Mass Index 33.73 02/13/2018 9:17 AM CDT Plan of Treatment Health Maintenance Due Date Last Done Comments DTAP/TDAP/TD VACCINES (1 - Tdap) 1974 COLORECTAL SCREENING 2000 Colorectal Cancer Screening 2000 FIT-DNA Q 3 years 2000 FIT/FOBT Q 1 year 2000 Flex Sig/CT Colonography Q 5 years 2000 PNEUMOCOCCAL VACCINE 50+ YEA RS (1 of 1 - PCV) 2005 ZOSTER VACCINE (1 of 2) 2005 BREAST CANCER SCREENING 06/13/2018 06/13/20 17, 05/24/2017 (Previously completed), 05/24/2017, Additional history exists OSTEOPOROSIS SCREENING 2020 Preventative Visit- Commercial 10/07/2024 INFLUENZA VACCINE (#1) 2025 RSV VACCINE (60+ or ) (1 - 1-dose 75+ series) 2030 Procedures Procedure Name Priority Date/Time Associated Diagnosis Comments MAMMO DIAGNOSTIC UNI LEFT W OR WO CAD Routine 06/13/2017 Breast nodule from Last 3 Months or Most Recently Relevant to Health Maintenance Results * MAMMO DIAGNOSTIC UNI LEFT W OR WO CAD (06/13/2017) Anatomical Region Laterality Modality Breast Left Mammography Iliana Boyer EXPEDITIONARY FORCE COMBAT SKILLS MAMMO ORDERABLES Final Result from Last 3 Months or Most Recently Relevant to Health Maintenance Insurance BCBS ADMINISTRATIVE PAYOR Care Teams Shoulder Boner Relationship Specialty Start Date End Date Mendel Bonds MD [address] [phone] PCP - General Family Practice 12/31/17
--- OUTSIDE RECORDS SUMMARY | 2025-07-07 10:29 | XMS_ITS | Encounter Summary ---
Author Organization [facility] Address [address] [place] [address] Care Team Providers Care Air Conditioner Installer Helper Name Role Phone Mendel Bonds MD Primary Care Provider +1 -[phone] Encounter Details Date Type Department Care Team (Latest Contact Info) Description 02/07/2005 Outpatient Historical [facility] Medicine- [address] [place] [address] Chelsea Chacon NP NO ADDRESS ON FILE MYALGIA AND MYOSITIS NOS (Primary Dx); HYPERLIPIDEMIA NEC/NOS; DEPRESSIVE DISORDER NEC Social History Tobacco Use Types Packs/Day Years Used Date Smoking Tobacco: Never Assessed Comments Unknown Sex and Gender Information Value Date Recorded Sex Assigned at Not on file 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 Gender Identity Not on file Sexual Orientation Not on file documented as of this encounter Plan of Treatment Not on file documented as of this encounter Visit Diagnoses Diagnosis Myalgia and myositis, unspecified- Primary Mylagia and myositis, unspecified Other and unspecified hyperlipidemia Depressive disorder, not elsewhere classified documented in this encounter Care Teams Air Conditioner Installer Helper Relationship Specialty Start Date End Date Mendel Bonds MD [address] [facility] [address] [place] [phone] PCP - General Family Practice 12/31/17 documented as of this encounter
--- OUTSIDE RECORDS SUMMARY | 2025-07-07 10:29 | XMS_ITS | Encounter Summary ---
Author Organization [facility] Address [address] [facility] [place] [address] Care Team Providers Care Marketing Services Specialist Name Role Phone Mendel Bonds MD Primary Care Provider +1 -[phone] Encounter Details Date Type Department Care Team (Latest Contact Info) Description 02/09/2005 Outpatient Historical [facility] Family Medicine- [place] [address] [place] [address] Chelsea Chacon, IVY NO ADDRESS ON FILE HYPERLIPIDEMIA NEC/NOS (Primary Dx) Social History Tobacco Use Types Packs/Day Years Used Date Smoking Tobacco: Never Assessed Comments Unknown Sex and Gender Information Value Date Recorded Sex Assigned at Not on file Legal Sex Female 3: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 MANAGER Gender Identity Not on file Sexual Orientation Not on file documented as of this encounter Plan of Treatment Not on file documented as of this encounter Procedures Procedure Name Priority Date/Time Associated Diagnosis Comments CBC WITHOUT DIFFERENTIAL Routine 02/09/2005 8:42 PM CDT ALT Routine 02/09/2005 8:42 PM CDT TSH Routine 02/09/2005 8:42 PM CDT CK Routine 02/09/2005 8:42 PM CDT AMYLASE Routine 02/09/2005 8:42 PM CDT LIPID PANEL Routine 02/09/2005 8:42 PM CDT BASIC METABOLIC PANEL Routine 02/09/2005 8:42 PM CDT documented in this encounter Results * (ABNORMAL) CBC WITHOUT DIFFERENTIAL (02/09/2005 8:42 PM CDT) WBC 4.3(L) 4.5 - 11.0 K/ul INTERFACE SYSTEM RBC 5.04 4.20 - 5.40 Mil/ul INTERFACE SYSTEM HEMOGLOBIN 14.6 12.0 - 16.0 g/dL INTERFACE SYSTEM HEMATOCRIT 45.9 36.0 - 46.0 % INTERFACE SYSTEM MCV 91.1 84.0 - 103.0 Fl INTERFACE SYSTEM MCH 29.0 27.0 - 34.0 pg INTERFACE SYSTEM MCHC 31.8 30.0 - 35.0 g/dL INTERFACE SYSTEM RDW 13.8 11.0 - 14.5 percent(in active) INTERFACE SYSTEM PLATELETS 233 140 - 440 K/ul INTERFACE SYSTEM MPV 11.6 8.9 - 12.8 Fl INTERFACE SYSTEM NEUTROPHILS 61.6 42.2 - 75.2 percent(in active) INTERFACE SYSTEM LYMPHOCYTES 28.3 24.0 - 44.0 percent(in active) INTERFACE SYSTEM MONOCYTES 8.9 2.0 - 10.0 percent(in active) INTERFACE SYSTEM EOSINOPHILS 0.7 0.0 - 7.0 % INTERFACE SYSTEM BASOPHILS 0.5 0.0 - 1.0 percent(in active) INTERFACE SYSTEM NEUTROPHIL ABSOLUTE 2.6 2.0 - 8.0 K/uL INTERFACE SYSTEM LYMPHOCYTE ABSOLUTE 1.2 1.2 - 4.0 K/ul INTERFACE SYSTEM MONOCYTE ABSOLUTE 0.4 0.1 - 0.6 K/ul INTERFACE SYSTEM EOSINOPHIL ABSOLUTE 0.0 0.0 - 0.7 K/ul INTERFACE SYSTEM BASOPHILS ABSOLUTE 0.0 0.0 - 0.2 K/ul INTERFACE SYSTEM 02/09/2005 8:42 PM CDT Chelsea Chacon NP HEMATOLOGY ORDERABLES Final Result INTERFACE SYSTEM Refer to clinic/hospital department * TSH (02/09/2005 8:42 PM CDT) Pathologist [facility] TSH 1.30 0.49 - 4.67 uIU/ml INTERFACE SYSTEM 02/09/2005 8:42 PM CDT us Chelsea Chacon SUPERVISOR [place] CHEMISTRY ORDERABLES Final R esult Performing Organization Address City/State/[facility] Co de Phone Number INTERFACE SYSTEM Refer to clinic/hospital department * CK (02/09/2005 8:42 PM CDT) CK 51 0 - 133 IU/L INTERFACE SYSTEM 02/09/2005 8:42 PM CDT Chelsea Chacon SUPERVISOR [place] CHEMISTRY ORDERABLES Final R esult INTERFACE SYSTEM Refer to clinic/hospital department * AMYLASE (02/09/2005 8:42 PM CDT) AMYLASE 42 30 - 120 IU/L INTERFACE SYSTEM 02/09/2005 8:42 PM CDT us Chelsea Chacon SUPERVISOR [place] CHEMISTRY ORDERABLES Final R esult Performing Organization Address [facility] de Phone Number INTERFACE SYSTEM Refer to clinic/hospital department * ALT (02/09/2005 8:42 PM CDT) ALT 31 9 - 52 IU/L INTERFAC E SYSTEM 02/09/2005 8:42 PM CDT us Chelsea Chacon SUPERVISOR [place] CHEMISTRY ORDERABLES Final R esult Performing Organization Address City/[facility]/ZIP Co de Phone Number INTERFACE SYSTEM Refer to clinic/hospital department * (ABNORMAL) LIPID PANEL (02/09/2005 8:42 PM CDT) HDL 78(H) 40 - 60 mg/dL INTERFACE SYSTEM CHOLESTEROL 310(H) 75 - 200 mg/dL INTERFACE SYSTEM TRIGLYCERIDE 84 0 - 179 mg/dL INTERFACE SYSTEM CALCULATED TOTAL CHOLESTEROL TO HDL RATIO 3.97 3.27 - 4.44 INTERFACE SYSTEM LDL CALCULATED 215(H) 0 - 130 mg/dL INTERFACE SYSTEM 02/09/2005 8:42 PM CDT us Chelsea Chacon SUPERVISOR [place] CHEMISTRY ORDERABLES Final R esult Performing Organization Address City/[facility] Co de Phone Number INTERFACE SYSTEM Refer to clinic/hospital department * BASIC METABOLIC PANEL (02/09/2005 8:42 PM CDT) GLUCOSE 103 70 - 110 mg/dL INTERFACE SYSTEM BUN 14 7 - 17 mg/dL INTERFACE SYSTEM CREATININE 0.9 0.7 - 1.2 mg/dL INTERFACE SYSTEM SODIUM 143 136 - 145 mEq/L INTERFACE SYSTEM POTASSIUM 4.0 3.5 - 5.0 mEq/L INTERFACE SYSTEM CHLORIDE 106 95 - 110 mEq/L INTERFACE SYSTEM CO2 29 22 - 32 mmol/l INTERFACE SYSTEM ANION GAP 12 9 - 20 mEq/L INTERFACE SYSTEM OSMOLALITY, CALCULATED 294 275 - 295 mOsm/Kg INTERFACE SYSTEM CALCIUM 9.3 8.4 - 10.5 mg/dL INTERFACE SYSTEM 02/09/2005 8:42 PM CDT us Chelsea Chacon SUPERVISOR [place] CHEMISTRY ORDERABLES Final R esult Performing Organization Address City/[facility] de Phone Number INTERFACE SYSTEM Refer to clinic/hospital department documented in this encounter Visit Diagnoses Diagnosis Other and unspecified hyperlipidemia- Primary documented in this encounter Care Teams Marketing Services Specialist Relationship Specialty Start Date End Date Mendel Bonds MD [address] [facility] [address] [place] [phone] PCP - General Family Practice 12/31/17 documented as of this encounter
--- OUTSIDE RECORDS SUMMARY | 2025-07-07 10:29 | XMS_ITS | Encounter Summary ---
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
--- OUTSIDE RECORDS SUMMARY | 2025-07-07 10:29 | XMS_ITS | Encounter Summary ---
Author Organization [facility] Address [address] [place] [address] Care Team Providers Care Physicist [place] Name Role Phone Mendel Bonds MD Primary Care Provider +1 -[phone] Encounter Details Date Type Department Care Team (Latest Contact Info) Description 11/17/2004 Outpatient Historical [facility] Medicine [place] [address] [address] Chelsea Chacon NP NO ADDRESS ON FILE SHLDR/UPPER ARM INJURY NOS (Primary Dx); JOINT PAIN-SHLDER Social History Tobacco Use Types Packs/Day Years Used Date Smoking Tobacco: Never Assessed Comments Unknown Sex and Gender Information Value Date Recorded Sex Assigned at Not on file Legal Sex Female 3:02 AM DOCUMENT DESIGN SPECIALIST Gender Identity Not on file Sexual Orientation Not on file documented as of this encounter Plan of Treatment Not on file documented as of this encounter Visit Diagnoses Diagnosis Injury, other and unspecified, shoulder and upper arm- Primary Pain in joint, shoulder region documented in this encounter Care Teams Physicist [place] Relationship Specialty Start Date End Date Mendel Bonds MD [address] [phone] PCP - General Family Practice 12/31/17 documented as of this encounter
--- OUTSIDE RECORDS SUMMARY | 2025-07-07 10:29 | XMS_ITS | Encounter Summary ---
Author Organization [facility] Address [address] [place] [address] Care Team Providers Care Can Coverer Name Role Phone Mendel Bonds MD Primary Care Provider +1 -[phone] Encounter Details Date Type Department Care Team (Late st Contact Info) Description 12/19/2004 Outpatient Historical [facility] Chelsea Chacon NP NO ADDRESS ON FILE Social History Tobacco Use Types Packs/Day Years Used Date Smoking Tobacco: Never Assessed Comments Unknown Sex and Gender Information Value Date Recorded Sex Assigned at Not on file Legal Sex Female 3:02 AM GROUP MARKETING VP Gender Identity Not on file Sexual Orientation Not on file documented as of this encounter Plan of Treatment Not on file documented as of this encounter Visit Diagnoses Not on filedocumented in this encounter Care Teams Can Coverer Relationship Specialty Start Date End Date Mendel Bonds MD [address] [facility] [address] [place] [address] PCP - General Family Practice 12/31/17 documented as of this encounter
--- OUTSIDE RECORDS SUMMARY | 2025-07-07 10:29 | XMS_ITS | Encounter Summary ---
Author Organization [facility] Address [address] [place] [address] Care Team Providers Care Tail Ripper Name Role Phone Mendel Bonds MD Primary Care Provider +1 -[phone] Encounter Details Date Type Department Care Team (Latest Contact Info) Description 06/15/2002 Outpatient Historical [facility] Medicine [address] [phone] Jose Alberto Becerril MD ABDOMINAL PAIN UNSPEC SITE (Primary Dx) Social History Tobacco Use Types Packs/Day Years Used Date Smoking Tobacco: Never Assessed Comments Unknown Sex and Gender Information Value Date Recorded Sex Assigned at Not on file Legal Sex Female 3:02 AM SIZE PAINTER Gender Identity Not on file Sexual Orientation Not on file documented as of this encounter Plan of Treatment Not on file documented as of this encounter Visit Diagnoses Diagnosis Abdominal pain, unspecified site- Primary documented in this encounter Care Teams Tail Ripper Relationship Specialty Start Date End Date Mendel Bonds MD [address] [phone] PCP - General Family Practice 12/31/17 documented as of this encounter
--- OUTSIDE RECORDS SUMMARY | 2025-07-07 10:29 | XMS_ITS | Encounter Summary ---
Author Organization [facility] Address [address] [place] [address] Care Team Providers Care Reconditioning Associate Name Role Phone Mendel Bonds MD Primary Care Provider +1 -[phone] Encounter Details Date Type Department Care Team (Latest Contact Info) Description 08/15/2007 Outpatient Historical [facility] Medicine [place] [address] [address] Chelsea Chacon NP NO ADDRESS ON FILE Acute Sinusitis, Unspecified (Primary Dx); Contact Dermatitis and Other Eczema, due to Unspecified Cause Social History Tobacco Use Types Packs/Day Years Used Date Smoking Tobacco: Never Assessed Comments Unknown Sex and Gender Information Value Date Recorded Sex Assigned at Not on file 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
--- OUTSIDE RECORDS SUMMARY | 2025-07-07 10:29 | XMS_ITS | Encounter Summary ---
Author Organization [facility] Address [address] [place] [address] Care Team Providers Care Product Management Specialist Name Role Phone Mendel Bonds MD Primary Care Provider +1 -[phone] Encounter Details Date Type Department Care Team (Latest Contact Info) Description 10/30/2002 Outpatient [facility] [place] [address] [facility] [address] [place] [address] Juan C Landaverde MD [address] [place] [address] ENURESIS NOS (Primary Dx) Social History Tobacco Use Types Packs/Day Years Used Date Smoking Tobacco: Never Assessed Comments Unknown Sex and Gender Information Value Date Recorded Sex Assigned at Not on file Legal Sex Female 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
--- OUTSIDE RECORDS SUMMARY | 2025-07-07 10:29 | XMS_ITS | Encounter Summary ---
Author Organization [facility] Address [address] [facility] [place] [address] Care Team Providers Care Helper Shear Operator Name Role Phone Mendel Bonds MD Primary Care Provider +1 -[phone] Reason for Referral * Outpatient Services (Routine) - Closed Specialty Diagnoses / Procedures Referred By Jaime vega Referred To Contact Diagnoses Other screening mammogram Procedures MAMMO DIGITAL SCREEN BILAT Gina Hylton APRN NO ADDRESS ON FILE Referral ID Status Reason Start Date Expiration Date Visits Re quested Visits Authorized [id number] Closed 04/04/2011 04/03/2012 1 1 Encounter Details Date Type Department Care Team (Late st Contact Info) Description 04/04/2011 Ancillary Orders [facility] Pre-Registration [place] CALL TO MAKE APPOINTMENT ONLY [address] [place] [phone] Gina Hylton APRN NO ADDRESS ON FILE Other screening mammogram Social History Tobacco Use Types Packs/Day Years Used Date Smoking Tobacco: Former Cigarettes 1.5 20 0 03/05/1968 - 03/05/1988 Smokeless Tobacco: Never Alcohol Use Standard Drinks/Week Comments No 0 (1 standard drink = 0.6 oz pur e alcohol) Comments No Sex and Gender Information Value Date Recorded Sex Assigned at Not on file Legal Sex Female 3:02 AM FLORIST'S DECORATOR Gender Identity Not on file Sexual Orientation Not on file documented as of this encounter Plan of Treatment Not on file documented as of this encounter Results * MAMMO DIGITAL SCREEN BILAT (07/02/2011 3:18 PM CDT) Anatomical Region Laterality Modality Breast Bilateral Mammography Narrative 07/03/2011 1:48 PM CDT Bilateral Mammogram Reason for Exam: Screening Comparison: Comparison is made with the prior exam(s) dated [id number] Findings: Bilateral CC and MLO views were obtained. This examination was reviewed with the aid of a computer-aided detection system(CAD). The breast tissue density is average. Stable right nodule. Stable left nodule. No significant new findings since the prior mammogram(s). Procedure Note Dann Garvin MD - 07/03/2011 Bilateral Mammogram Reason for Exam: Screening Comparison: Comparison is made with the prior exam(s) [id number] Findings: Bilateral CC and MLO views were obtained. This examination was reviewed with the aid of a computer-aided detectionsystem(CAD). The breast tissue density is average. Stable right nodule. Stable left nodule. No significant new findings since the prior mammogram(s). Gina Hylton BURR FILER MAMMO ORDERABLES Final Result documented in this encounter Visit Diagnoses Diagnosis Other screening mammogram Other screening mammogram documented in this encounter Care Teams Helper Shear Operator Relationship Specialty Start Date End Date Mendel Bonds MD [address] [phone] PCP - General Family Practice 12/31/17 documented as of this encounter
--- OUTSIDE RECORDS SUMMARY | 2025-07-07 10:29 | XMS_ITS | Encounter Summary ---
Author Organization [facility] Address [address] [place] [address] Care Team Providers Care Anchorman Name Role Phone Mendel Bonds MD Primary Care Provider +1 [phone] Encounter Details Date Type Department Care Team (Latest Contact Info) Description 12/12/2004 Outpatient Historical [facility] [place] [address] [facility] [address] [place] [address] Juan C Landaverde MD [address] [place] [address] SYMPTOMATIC FEMALE CLIMACTERIC STATE (Primary Dx) Social History Tobacco Use Types Packs/Day Years Used Date Smoking Tobacco: Never Assessed Comments Unknown Sex and Gender Information Value Date Recorded Sex Assigned at Not on file Legal Sex Female 3:02 AM MOLD MAKER PLASTIC MOLDS Gender Identity Not on file Sexual Orientation Not on file documented as of this encounter Plan of Treatment Not on file documented as of this encounter Visit Diagnoses Diagnosis Symptomatic menopausal or female climacteric states- Primary documented in this encounter Care Teams Anchorman Relationship Specialty Start Date End Date Mendel Bonds MD [address] [facility] [address] [place] [phone] PCP - General Family Practice 12/31/17 documented as of this encounter
--- OUTSIDE RECORDS SUMMARY | 2025-07-07 10:29 | XMS_ITS | Encounter Summary ---
Author Organization [facility] Address [address] [place] [address] Care Team Providers Care Pocket Builder Name Role Phone Mendel Bonds MD Primary Care Provider +1 -[phone] Encounter Details Date Type Department Care Team (Latest Contact Info) Description 02/27/[address] 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
--- OUTSIDE RECORDS SUMMARY | 2025-07-07 10:29 | XMS_ITS | Encounter Summary ---
Author Organization [facility] Address [address] [place] [address] Care Team Providers Care General Dentist Name Role Phone Mendel Bonds MD Primary Care Provider +1 -[phone] Encounter Details Date Type Department Care Team (Late st Contact Info) Description 06/01/2002 Outpatient Historical [facility] Medicine [address] [address] Social History Tobacco Use Types Packs/Day Years Used Date Smoking Tobacco: Never Assessed Comments Unknown Sex and Gender Information Value Date Recorded Sex Assigned at Not on file Legal Sex Female 3:02 AM SPA RECEPTIONIST Gender Identity Not on file Sexual Orientation Not on file documented as of this encounter Plan of Treatment Not on file documented as of this encounter Visit Diagnoses Not on filedocumented in this encounter Care Teams General Dentist Relationship Specialty Start Date End Date Mendel Bonds MD [address] [address] PCP - General Family Practice 12/31/17 documented as of this encounter
--- OUTSIDE RECORDS SUMMARY | 2025-07-07 10:29 | XMS_ITS | Encounter Summary ---
Author Organization [facility] Address [address] [place] [address] Care Team Providers Care Message Broker Developer Name Role Phone Mendel Bonds MD Primary Care Provider +1 -[phone] Encounter Details Date Type Department Care Team (Late st Contact Info) Description 03/01/[address] [facility] Imaging External Read [address] [place] [address] Connie Dykes MD [address] [place] [phone] Screening Mammogram Social History Tobacco Use Types Packs/Day Years Used Date Smoking Tobacco: Never Assessed Comments Unknown Sex and Gender Information Value Date Recorded Sex Assigned at Not on file Legal Sex Female 3:02 AM CLINICAL DATA ABSTRACTOR Gender Identity Not on file Sexual Orientation Not on file documented as of this encounter Plan of Treatment Not on file documented as of this encounter Results * MAMMO SCREENING BILAT (03/01/2009 12:38 PM CDT) Anatomical Region Laterality Modality Breast Bilateral Mammography Addenda Addendum by Jen Flynn MD on 03/28/2009 3:16 PM CDT ADDENDUM TO MAMMOGRAM OF 02/22/09: Outside films from [facility], [place], [place] dated 02/13/06, 06/18/02, and 02/08/05 were compared to our screening exam of 02/22/09. Findings are stable. Yearly exams are recommended. *Addendum dictated on 03/24/09 Narrative 03/25/2009 3:27 PM CDT BILATERAL SCREENING MAMMOGRAM - 02.22.09: Bilateral craniocaudal and oblique views of the breasts show heterogeneously dense tissue. No suspicious calcifications are seen. There is a nodule upper outer on the left containing a marker clip which apparently was previously biopsied here at [facility] and was benign. The only comparison exam I have is dated 02.19.08 and there is no significant change, but the older prior films from [facility] will need to be obtained for comparison in order to establish a longer stability for the nodule on the left. This mammogram was also analyzed by the Computer Aided Detection system (CAD), R2 ImageChecker, Version 3.1. CONCLUSION: I would recommend we obtain prior [facility] folder for older films for comparison. Procedure Note Jen Flynn MD - 03/03/2009 BILATERAL SCREENING MAMMOGRAM - 02.22.09: Bilateral craniocaudal andoblique views of the breasts show heterogeneously dense tissue. Nosuspicious calcifications are seen. There is a nodule upper outer on theleft containing a marker clip which apparently was previously [facility]opsied[facility] at [facility] and was benign. The only comparison exam I have isdated 02.19.08 and there is no significant change, but the older priorfilms from [facility] will need to be obtained forcomparison in order to establish a longer stability for the nodule on theleft. This mammogram was also analyzed by the Computer Aided Detection system(CAD), R2 ImageChecker, Version 3.1. CONCLUSION: I would [facility] us External Provider [facility] MAMMO ORDERABLES Edited Re sult - Final documented in this encounter Visit Diagnoses Diagnosis Screening mammogram Other screening mammogram documented in this encounter Care Teams Message Broker Developer Relationship Specialty Start Date End Date Mendel Bonds MD [address] [facility] [address] [place] [address] PCP - General Family Practice 12/31/17 documented as of this encounter
--- OUTSIDE RECORDS SUMMARY | 2025-07-07 10:29 | XMS_ITS | Encounter Summary ---
Author Organization [facility] Address [address] [place] [address] Care Team Providers Care Junior Data Analyst Name Role Phone Mendel Bonds MD Primary Care Provider +1 -[phone] Encounter Details Date Type Department Care Team (Latest Contact Info) Description 08/05/2002 Outpatient Historical [facility] Family Medicine- [place] [address] [facility] [place] [address] Mann Vazquez MD [address] [facility] [address] [place] [address] FEMALE GENITAL SYMPTOMS NOS (Primary Dx); DERMATITIS NOS; ACUTE SINUSITIS NOS; Gynecologic examination Social History Tobacco Use Types Packs/Day Years Used Date Smoking Tobacco: Never Assessed Comments Unknown Sex and Gender Information Value Date Recorded Sex Assigned at Not on file Legal Sex Female 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 Gender Identity Not on file Sexual Orientation Not on file documented as of this encounter Plan of Treatment Not on file documented as of this encounter Visit Diagnoses Diagnosis Unspecified symptom associated with female genital organs- Primary Contact dermatitis and other eczema, due to unspecified cause Acute sinusitis, unspecified Gynecologic examination Gynecological examination documented in this encounter Care Teams Junior Data Analyst Relationship Specialty Start Date End Date Mendel Bonds MD [address] [facility] [address] [place] [address] PCP - General Family Practice 12/31/17 documented as of this encounter
--- OUTSIDE RECORDS SUMMARY | 2025-07-07 10:29 | XMS_ITS | Encounter Summary ---
Author Organization [facility] Address [address] [place] [address] Care Team Providers Care Enrober Name Role Phone Mendel Bonds MD Primary Care Provider +1 -[phone] Reason for Referral * Outpatient Services (Routine) - Closed Specialty Diagnoses / Procedures Referred By Contac t Referred To Contact Diagnoses Abnormal mammogram, unspecified Procedures MAMMO BREAST US LT Connie Dykes MD [address] [place] [address] Phone: tel: fax: Referral ID Status Reason Start Date Expiration Date Visits Re quested Visits Authorized [id number] Closed 10/17/2010 04/15/2011 1 1 EWATER TREATMENT PLANT OPERATOR Encounter Details Date Type Department Care Team (Late st Contact Info) Description 10/17/2010 Ancillary Orders [facility] [address] [facility] [address] [place] [address] Connie Dykes MD [address] [place] [address] Abnormal mammogram, unspecified Social History Tobacco Use Types Packs/Day Years Used Date Smoking Tobacco: Never Alcohol Use Standard Drinks/Week Comments No 0 (1 standard drink = 0.6 oz pur e alcohol) Comments No Sex and Gender Information Value Date Recorded Sex Assigned at Not on file Legal Sex Female 3:02 AM WASTEWATER TREATMENT PLANT OPERATOR Gender Identity Not on file Sexual Orientation Not on file documented as of this encounter Plan of Treatment Not on file documented as of this encounter Results * MAMMO BREAST US LT (11/28/2010 2:35 PM WASTEWATER TREATMENT PLANT OPERATOR) Anatomical Region Laterality Modality Breast Left Ultrasound Narrative 12/05/2010 7:50 AM WASTEWATER TREATMENT PLANT OPERATOR LEFT BREAST ULTRASOUND: The patient returns for short-term follow-up of left-sided nodule seen mammographically which previously was biopsied. Correlation is made with the ultrasound studies dating back to 2004. The most recent ultrasound study is dated 04/11/2010. The left-sided nodule is identified at the 3-6 position and is stable in size. It currently measures approximately 10.5 x 9.8 x 7.1 mm. Incidentally there is a smaller 3-mm nodule nearby which has a similar appearance. SUMMARY: Satisfactory and stable left nodule. She can return to bilateral screening, and she would be due for that in March of 2011. This was discussed with the patient. The patient was given a result/recommendation letter. Erlin Procedure Note Dann Garvin MD - 12/05/2010 LEFT BREAST ULTRASOUND: The patient returns for short-term follow-up of left-sided nodule seenmammographically which previously was biopsied. Correlation is made withthe ultrasound studies dating back to 2004. The most recent ultrasoundstudy is dated 04/11/2010. The left-sided nodule is identified at the 3-6 position and is stable insize. It currently measures approximately 10.5 x 9.8 x 7.1 mm.Incidentally there is a smaller 3-mm nodule nearby which has a similarappearance. SUMMARY: Satisfactory and stable left nodule. She can return to bilateralscreening, and she would be due for that in March of 2011. This wasdiscussed with the patient. The patient was given a result/recommendation letter. Erlin us Connie Dykes MD MAMMO ORDERABLES Final Result documented in this encounter Visit Diagnoses Diagnosis Abnormal mammogram, unspecified Abnormal mammogram, unspecified documented in this encounter Care Teams Enrober Relationship Specialty Start Date End Date Mendel Bonds MD [address] [phone] PCP - General Family Practice 12/31/17 documented as of this encounter
--- OUTSIDE RECORDS SUMMARY | 2025-07-07 10:29 | XMS_ITS | Encounter Summary ---
Author Organization [facility] Address [address] [place] [address] Care Team Providers Care Clinical Advisor Name Role Phone Mendel Bonds MD Primary Care Provider +1 -[phone] Encounter Details Date Type Department Care Team (Latest Contact Info) Description 07/29/2002 Outpatient Historical [facility] Medicine- [address] [phone] Mann Vazquez MD [address] [phone] Diaphragmatic hernia (Primary Dx) Social History Tobacco Use Types Packs/Day Years Used Date Smoking Tobacco: Never Assessed Comments Unknown Sex and Gender Information Value Date Recorded Sex Assigned at Not on file 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
--- OUTSIDE RECORDS SUMMARY | 2025-07-07 10:29 | XMS_ITS | Encounter Summary ---
Author Organization [facility] Address [address] [place] [address] Care Team Providers Care Musical Instrument Supervisor Name Role Phone Mendel Bonds MD Primary Care Provider +1 -[phone] Encounter Details Date Type Department Care Team (Latest Contact Info) Description 08/21/2004 Outpatient Historical [facility] Family Medicine- [address] [place] [address] Chelsea Chacon NP NO ADDRESS ON FILE Diverticulosis of colon (Primary Dx); HYPERLIPIDEMIA NEC/NOS Social History Tobacco Use Types Packs/Day Years Used Date Smoking Tobacco: Never Assessed Comments Unknown Sex and Gender Information Value Date Recorded Sex Assigned at Not on file Legal Sex Female 3:02 AM FOOD SAFETY MANAGER Gender Identity Not on file Sexual Orientation Not on file documented as of this encounter Plan of Treatment Not on file documented as of this encounter Visit Diagnoses Diagnosis Diverticulosis of colon- Primary Diverticulosis of colon (without mention of hemorrhage) Other and unspecified hyperlipidemia documented in this encounter Care Teams Musical Instrument Supervisor Relationship Specialty Start Date End Date Mendel Bonds MD [address] [facility] [address] [place] [address] PCP - General Family Practice 12/31/17 documented as of this encounter
--- OUTSIDE RECORDS SUMMARY | 2025-07-07 10:29 | XMS_ITS | Encounter Summary ---
Author Organization [facility] Address [address] [place] [address] Care Team Providers Care Auto Bumper Mechanic Name Role Phone Mendel Bonds MD Primary Care Provider +1 -[phone] Encounter Details Date Type Department Care Team (Latest Contact Info) Description 03/06/2005 Outpatient Historical [address] [address] Chelsea Chacon NP NO ADDRESS ON FILE Benign remy breast (Primary Dx); ACUTE PHARYNGITIS; Benign remy scalp/skin neck; HYPERLIPIDEMIA NEC/NOS Social History Tobacco Use Types Packs/Day Years Used Date Smoking Tobacco: Never Assessed Comments Unknown Sex and Gender Information Value Date Recorded Sex Assigned at Not on file Legal Sex Female 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
--- OUTSIDE RECORDS SUMMARY | 2025-07-07 10:29 | XMS_ITS | Encounter Summary ---
Author Organization [facility] Address [address] [place] [address] Care Team Providers Care Invoice Control Clerk Name Role Phone Mendel Bonds MD Primary Care Provider +1 [phone] Encounter Details Date Type Department Care Team (Late st Contact Info) Description 02/17/2007 Outpatient Historical [facility] [place] [address] Connie Dykes MD [address] [place] [address] Other Screening Mammogram (Primary Dx) Social History Tobacco Use Types Packs/Day Years Used Date Smoking Tobacco: Never Assessed Comments Unknown Sex and Gender Information Value Date Recorded Sex Assigned at Not on file Legal Sex Female 3:02 AM REHAB CONSULTANT Gender Identity Not on file Sexual Orientation Not on file documented as of this encounter Plan of Treatment Not on file documented as of this encounter Visit Diagnoses Diagnosis Other screening mammogram- Primary documented in this encounter Care Teams Invoice Control Clerk Relationship Specialty Start Date End Date Mendle Bonds MD [address] [phone] PCP - General Family Practice 12/31/17 documented as of this encounter
--- OUTSIDE RECORDS SUMMARY | 2025-07-07 10:29 | XMS_ITS | Encounter Summary ---
Author Organization [facility] Address [address] [place] [address] Care Team Providers Care Sample Maker Hand Name Role Phone Mendel Bonds MD Primary Care Provider +1 [phone] Encounter Details Date Type Department Care Team (Late st Contact Info) Description 03/23/2010 Ancillary Orders [facility] [address] 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 The largest dimension on the previously biopsied nodule is 12 mm. If there has been any interval change, it would be a subtle change. We are attempting to retrieve the previous ultrasound. If those films do not become available for comparison, I would recommend a left six-month follow-up ultrasound to assess stability. KG/jaw Narrative 04/18/2010 11:49 AM CDT LEFT BREAST ULTRASOUND: HISTORY: The patient is returning for sonographic evaluation on the left as requested following screening study of 03/07/2010. I also reviewed the most recent previous study of 02/22/2009. ULTRASOUND: Sonographic evaluation was carried out on the left, and at the 3 o'clock position there is a very well-defined, solid nodule which is measuring 10.7 x 7.4 x 12.1 mm in the transverse, AP, and longitudinal dimension. This nodule was biopsied as evidenced by tissue marker clip which is in stable position. It was difficult to say with certainty if an interval change has occurred or the nodule is simply somewhat obscured because of overlying breast tissue. However, the patient's previous ultrasound is not available to me for comparison. Mammographically, there has been no appreciable interval change since 2008 and questionable change since 2007. 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 We will attempt to retrieve the previous ultrasound. However, if that does not become available, I would recommend that the patient return in six months for a left breast ultrasound to assess stability of the nodule. Procedure Note Michaela Renteria MD - 04/18/2010 LEFT BREAST ULTRASOUND: HISTORY: The patient is returning for sonographic evaluation on the leftas requested following screening study of 03/07/2010. I also reviewed themost recent previous study of 02/22/2009. ULTRASOUND: Sonographic evaluation was carried out on the left, and at the 3 o'clockposition there is a very well-defined, solid nodule which is fvcvstqur53.7 x 7.4 x 12.1 mm in the transverse, AP, and longitudinal dimension.This nodule was biopsied as evidenced by tissue marker clip which is instable position. It was difficult to say with certainty if an intervalchange has occurred or the nodule is simply somewhat obscured because ofoverlying breast tissue. However, the patient's previous ultrasound isnot available to me for comparison. Mammographically, there has been noappreciable interval change since 2008 and questionable change since 2007.I reviewed the pathology report which stated the nodule was afibroadenoma. We will attempt to retrieve the previous ultrasound.However, if that does not become available, I would recommend that thepatient return in six months for a left breast ultrasound to assessstability of the nodule. IMPRESSION: The patient returned for sonographic evaluation on the left. The largestdimension on the previously biopsied nodule is 12 mm. If there has beenany interval change, it would be a subtle change. We are attempting toretrieve the previous ultrasound. If those films do not become availablefor comparison, I would recommend a left six- month follow-up ultrasound toassess stability. KG/jaw us Connie Dykes MD MAMMO ORDERABLES Final Result documented in this encounter Visit Diagnoses Diagnosis Other (abnormal) findings on radiological examination of breast Other (abnormal) findings on radiological examination of breast documented in this encounter Care Teams Sample Maker Hand Relationship Specialty Start Date End Date Mendel Bonds MD [address] [facility] [address] [place] [address] PCP - General Family Practice 12/31/17 documented as of this encounter
--- OUTSIDE RECORDS SUMMARY | 2025-07-07 10:29 | XMS_ITS | Encounter Summary ---
Author Organization [facility] Address [address] [place] [address] Care Team Providers Care Credit Portfolio Advisor Name Role Phone Mendel Bonds MD Primary Care Provider [phone] [phone] Encounter Details Date Type Department Care Team (Latest Contact Info) Description 02/27/2005 Outpatient Historical [facility] Leonel Horowitz DO NO ADDRESS ON FILE BENIGN NEOPLASM BREAST (Primary Dx) Social History Tobacco Use Types Packs/Day Years Used Date Smoking Tobacco: Never Assessed Comments Unknown Sex and Gender Information Value Date Recorded Sex Assigned at Not on file Legal Sex Female 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
--- OUTSIDE RECORDS SUMMARY | 2025-07-07 10:29 | XMS_ITS | Encounter Summary ---
Author Organization [facility] Address [address] [place] [address] Care Team Providers Care Heating And Cooling Technician Name Role Phone Mendel Bonds MD Primary Care Provider [phone] [phone] Encounter Details Date Type Department Care Team (Latest Contact Info) Description 02/19/2005 Outpatient Historical [facility] Leonel Horowitz DO NO ADDRESS ON FILE OT ABNORMAL RADIOLOG EXAM BREAST (Primary Dx) Social History Tobacco Use Types Packs/Day Years Used Date Smoking Tobacco: Never Assessed Comments Unknown Sex and Gender Information Value Date Recorded Sex Assigned at Not on file 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
--- OUTSIDE RECORDS SUMMARY | 2025-07-07 10:29 | XMS_ITS | Encounter Summary ---
Author Organization [facility] Address [address] [place] [address] Care Team Providers Care Interior Design Instructor Name Role Phone Mendel Bonds MD Primary Care Provider +1 [phone] Encounter Details Date Type Department Care Team (Latest Contact Info) Description 02/13/2006 Outpatient Historical [facility] Nic Huff She[address] [place] [address] Jen Flynn MD NO ADDRESS ON FILE Other Screening Mammogram (Primary Dx) Social History Tobacco Use Types Packs/Day Years Used Date Smoking Tobacco: Never Assessed Comments Unknown Sex and Gender Information Value Date Recorded Sex Assigned at Not on file Legal Sex Female 3:02 AM ANESTHESIOLOGIST/PHYSICIAN Gender Identity Not on file Sexual Orientation Not on file documented as of this encounter Plan of Treatment Not on file documented as of this encounter Visit Diagnoses Diagnosis Other screening mammogram- Primary documented in this encounter Care Teams Interior Design Instructor Relationship Specialty Start Date End Date Mendel Bonds MD [address] [facility] [address] [place] [address] PCP - General Family Practice 12/31/17 documented as of this encounter
--- OUTSIDE RECORDS SUMMARY | 2025-07-07 10:29 | XMS_ITS | Encounter Summary ---
Author Organization [facility] Address [address] [place] [address] Care Team Providers Care Import Customer Service Manager Name Role Phone Mendel Bonds MD Primary Care Provider +1 [phone] Encounter Details Date Type Department Care Team (Latest Contact Info) Description 02/17/2007 Outpatient Historical [facility] Nic Huff [address] [place] [address] Jen Flynn MD NO ADDRESS ON FILE Other Screening Mammogram (Primary Dx) Social History Tobacco Use Types Packs/Day Years Used Date Smoking Tobacco: Never Assessed Comments Unknown Sex and Gender Information Value Date Recorded Sex Assigned at Not on file Legal Sex Female 3:02 AM TOXICOLOGIST Gender Identity Not on file Sexual Orientation Not on file documented as of this encounter Plan of Treatment Not on file documented as of this encounter Visit Diagnoses Diagnosis Other screening mammogram- Primary documented in this encounter Care Teams Import Customer Service Manager Relationship Specialty Start Date End Date Mendel Bonds MD [address] [facility] [address] [place] [address] PCP - General Family Practice 12/31/17 documented as of this encounter
--- OUTSIDE RECORDS SUMMARY | 2025-07-07 10:29 | XMS_ITS | Clinical Summary ---
Author Organization [facility] Address [address] [place]: Epic Prelude ADT [place]AR[place] [address] Care Team Providers Care Fiscal Services Director Name Role Phone Mendel Bonds MD Primary Care Provider +1 -[phone] Allergies Active Allergy Reactions Criticality Noted Date Comments Atorvastatin Itching,Other (See Comments) Low 02/15 Clarithromycin Rash Low 08/16/2009 Medications ibuprofen (MOTRIN) 800 mg tablet TAKE 1 TABLET BY MOUTH EVERY 8 HOURS NEEDED FOR PAIN 30 Tablet 2 8 Active pseudoephedrine (SUDAFED) 30 mg tabletIndications :Sinusitis, unspecified chronicity, unspecified location Take 2 Tablets (60 mg) by mouth every 6 hours as needed for Congestion. 20 Tablet 0 7 Active acyclovir (ZOVIRAX) 200 mg capsuleIndication s:Herpes zoster without complication Take 2 Capsules (400 mg) by mouth daily. 60 Capsule 5 8 Active pravastatin (PRAVACHOL) 20 mg tablet Take 1 Tablet (20 mg) by mouth daily. 30 Tablet 3 8 Active fexofenadine (MONA) 180 mg tabletIndications :Sinusitis, unspecified chronicity, unspecified location Take 1 Tablet (180 mg) by mouth daily. 30 Tablet 5 7 Active citalopram (CeleXA) 20 mg tabletIndications :Anxiety disorder, unspecified type Take 1 Tablet (20 mg) by mouth daily at bedtime. 30 Tablet 11 8 Active pravastatin (PRAVACHOL) 20 mg tablet Take 1 Tablet (20 mg) by mouth daily. 30 Tablet 3 8 Active promethazine-dext romethorphan (PHENERGAN-DM) 6.25-15 mg/5 mL syrupIndications: Cough Take 5 mL by mouth every 4 hours as needed for Cough. 120 mL 1 8 Active omeprazole (PriLOSEC) 20 mg Capsule, Delayed Release(E.C.)Edna cations:Gastroeso phageal reflux disease, esophagitis presence not specified TAKE ONE CAPSULE BY MOUTH ONCE DAILY. 30 Capsule 11 8 Active fluticasone propionate (FLONASE) 50 mcg/spray Gordon, Suspension nasal inhalerIndication s:Sinusitis, unspecified chronicity, unspecified location Administer 1 Gordon in each nostril daily. 16 Gram 0 7 Active hydroCHLOROthiazi de 25 mg tabletIndications :Essential hypertension TAKE ONE TABLET (25MG) BY MOUTH ONCE DAILY. 90 Tablet 3 8 Active Active Problems Problem Noted Date Diagnosed Date History of melanoma 02/18/2018 Right shoulder pain 01/06/2016 Overview (02/02/2021): Per patient had a tear, and now [...] High Cholesterol Mother Breast Cancer Other 1 1st cousin pat. Breast Cancer Other 2 paunt Heart Disease Other 2 paunt Breast Cancer Other 3 Great maunt Colon Cancer Neg Hx Relation Name Status Comments Brother Father Mother Alive Other 1 1st cousin pat. Alive Other 2 paunt Other 3 Great maunt Alive Social History Tobacco Use Types Packs/Day Years Used Date Smoking Tobacco: Former Cigarettes Q uit: 03/05/1988 Smokeless Tobacco: Never Alcohol Use Standard Drinks/Week Comments No 0 (1 standard drink = 0.6 oz pur e alcohol) Comments Unknown Sex and Gender Information Value Date Recorded Sex Assigned at Not on file Legal Sex Female 11:44 PM SENIOR FUND ACCOUNTANT Gender Identity Not on file Sexual Orientation Not on file Last Filed Vital Signs Vital Sign Reading Time Taken Comments Blood Pressure 137/82 02/13/2018 9:17 AM CDT Pulse 68 02/13/2018 9:17 AM CDT Temperature 36.4 C (97.5 F) 02/13/2018 9:17 AM CDT Respiratory Rate 14 02/13/2018 9:17 AM CDT Oxygen Saturation - - Inhaled Oxygen Concentration - - Weight 86.4 [...] 2005 BREAST CANCER SCREENING 06/13/2018 06/13/20 17, 05/24/2017, 07/02/2011, Additional history exists OSTEOPOROSIS SCREENING 2020 INFLUENZA VACCINE (#1) 2025 RSV VACCINE (60+ or ) (1 - 1-dose 75+ series) 2030 Procedures Procedure Name Priority Date/Time Associated Diagnosis Comments MAMMO DIAGNOSTIC UNI LEFT W OR WO CAD Routine 06/13/2017 12:00 AM CDT Breast nodule from Last 3 Months or Most Recently Relevant to Health Maintenance Results * MAMMO DIAGNOSTIC UNI LEFT W OR WO CAD (06/13/2017 12:00 AM CDT) Anatomical Region Laterality Modality Breast Left Other Iliana Boyer CLOTH EXAMINER MAMMO ORDERABLES Final Result from Last 3 Months or Most Recently Relevant to Health Maintenance Care Teams Fiscal Services Director Relationship Specialty Start Date End Date Mendel Bonds MD [address] [place] [phone] PCP - General Family Practice 12/31/17
--- OUTSIDE RECORDS SUMMARY | 2025-07-07 10:29 | XMS_ITS | Encounter Summary ---
Author Organization [facility] Address [address] [place] [address] Care Team Providers Care Skid Road Man Name Role Phone Mendel Bonds MD Primary Care Provider +1 [phone] Encounter Details Date Type Department Care Team (Late st Contact Info) Description 11/17/2004 Outpatient Historical [facility] Chelsea Chacon NP NO ADDRESS ON FILE Social History Tobacco Use Types Packs/Day Years Used Date Smoking Tobacco: Never Assessed Comments Unknown Sex and Gender Information Value Date Recorded Sex Assigned at Not on file Legal Sex Female 3:02 AM RECORD RETRIEVAL SPECIALIST Gender Identity Not on file Sexual Orientation Not on file documented as of this encounter Plan of Treatment Not on file documented as of this encounter Visit Diagnoses Not on filedocumented in this encounter Care Teams Skid Road Man Relationship Specialty Start Date End Date Mendel Bonds MD [address] [facility] [address] [place] [address] PCP - General Family Practice 12/31/17 documented as of this encounter
--- OUTSIDE RECORDS SUMMARY | 2025-07-07 10:30 | XMS_ITS | Encounter Summary ---
Author Organization [facility] Address [address] [place] [address] Care Team Providers Care Benefits Administrator Name Role Phone Mendel Bonds MD Primary Care Provider +1 -[phone] Encounter Details Date Type Department Care Team (Latest Contact Info) Description 06/14/2004 Outpatient Historical [facility] Family Medicine- [address] [place] [address] Leonel Horowitz, NO ADDRESS ON FILE ACUTE SINUSITIS NOS (Primary Dx); ROTATOR CUFF SYND NOS Social History Tobacco Use Types Packs/Day Years Used Date Smoking Tobacco: Never Assessed Comments Unknown Sex and Gender Information Value Date Recorded Sex Assigned at Not on file 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
--- OUTSIDE RECORDS SUMMARY | 2025-07-07 10:30 | XMS_ITS | Encounter Summary ---
Author Organization [facility] Address [address] [place] [address] Care Team Providers Care Accounts Supervisor Name Role Phone Mendel Bonds MD Primary Care Provider +1 -[phone] Encounter Details Date Type Department Care Team (Latest Contact Info) Description 06/01/2003 Outpatient Historical [facility] Family Medicine- [facility] [address] [place] [address] Leonel Horowitz, NO ADDRESS ON FILE VAGINITIS NOS (Primary Dx); ESOPHAGEAL REFLUX; CYST KIDNEY DIS, UNSPEC Social History Tobacco Use Types Packs/Day Years Used Date Smoking Tobacco: Never Assessed Comments Unknown Sex and Gender Information Value Date Recorded Sex Assigned at Not on file 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
--- OUTSIDE RECORDS SUMMARY | 2025-07-07 10:30 | XMS_ITS | Encounter Summary ---
Author Organization [facility] Address [address] [place] [address] Care Team Providers Care Patient Services Coordinator Name Role Phone Mendel Bonds MD Primary Care Provider +1 -[phone] Encounter Details Date Type Department Care Team (Latest Contact Info) Description 06/01/2003 Outpatient Historical [facility] Family Medicine- [address] [place] [address] Chelsea Chacon NP NO ADDRESS ON FILE HYPERLIPIDEMIA NEC/NOS (Primary Dx) Social History Tobacco Use Types Packs/Day Years Used Date Smoking Tobacco: Never Assessed Comments Unknown Sex and Gender Information Value Date Recorded Sex Assigned at Not on file Legal Sex Female 3:02 AM WELDER GAS Gender Identity Not on file Sexual Orientation Not on file documented as of this encounter Plan of Treatment Not on file documented as of this encounter Visit Diagnoses Diagnosis Other and unspecified hyperlipidemia- Primary documented in this encounter Care Teams Patient Services Coordinator Relationship Specialty Start Date End Date Mendel Bonds MD [address] [facility] [address] [place] [address] PCP - General Family Practice 12/31/17 documented as of this encounter
--- OUTSIDE RECORDS SUMMARY | 2025-07-07 10:30 | XMS_ITS | Encounter Summary ---
Author Organization [facility] Address [address] [place] [address] Care Team Providers Care Craft Center Director Name Role Phone Mendel Bonds MD Primary Care Provider +1 -[phone] Encounter Details Date Type Department Care Team (Latest Contact Info) Description 12/01/2003 Outpatient Historical [facility] Family Medicine- [address] [place] [address] Chelsea Chacon NP NO ADDRESS ON FILE ABDOMINAL PAIN EPIGASTRIC (Primary Dx) Social History Tobacco Use Types Packs/Day Years Used Date Smoking Tobacco: Never Assessed Comments Unknown Sex and Gender Information Value Date Recorded Sex Assigned at Not on file Legal Sex Female 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
--- OUTSIDE RECORDS SUMMARY | 2025-07-07 10:30 | XMS_ITS | Encounter Summary ---
Author Organization [facility] Address [address] [place] [address] Care Team Providers Care Chief Psychologist Name Role Phone Mendel Bonds MD Primary Care Provider +1 -[phone] Encounter Details Date Type Department Care Team (Latest Contact Info) Description 07/04/2004 Outpatient Historical [facility] Medicine [address] [address] Chelsea Chacon NP NO ADDRESS ON FILE ESOPHAGEAL REFLUX (Primary Dx); ALLERGIC RHINITIS NOS Social History Tobacco Use Types Packs/Day Years Used Date Smoking Tobacco: Never Assessed Comments Unknown Sex and Gender Information Value Date Recorded Sex Assigned at Not on file 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
--- OUTSIDE RECORDS SUMMARY | 2025-07-07 10:30 | XMS_ITS | Encounter Summary ---
Author Organization [facility] Address [address] [place] [address] Care Team Providers Care Market Sales Manager Name Role Phone Mendel Bonds MD Primary Care Provider +1 -[phone] Encounter Details Date Type Department Care Team (Latest Contact Info) Description 05/11/2002 Outpatient Historical [facility] Medicine [address] [phone] Jose Alberto Becerril MD ABDOMINAL PAIN UNSPEC SITE (Primary Dx) Social History Tobacco Use Types Packs/Day Years Used Date Smoking Tobacco: Never Assessed Comments Unknown Sex and Gender Information Value Date Recorded Sex Assigned at Not on file Legal Sex Female 3:02 AM ELECTROMYOGRAPHIC TECHNICIAN Gender Identity Not on file Sexual Orientation Not on file documented as of this encounter Plan of Treatment Not on file documented as of this encounter Visit Diagnoses Diagnosis Abdominal pain, unspecified site- Primary documented in this encounter Care Teams Market Sales Manager Relationship Specialty Start Date End Date Mendel Bonds MD [address] [phone] PCP - General Family Practice 12/31/17 documented as of this encounter
--- OUTSIDE RECORDS SUMMARY | 2025-07-07 10:30 | XMS_ITS | Encounter Summary ---
Author Organization [facility] Address [address] [place] [address] Care Team Providers Care Postal Service Sectional Center Manager Name Role Phone Mendel Bonds MD Primary Care Provider +1 -[phone] Encounter Details Date Type Department Care Team (Latest Contact Info) Description 08/25/2003 Outpatient Historical [facility] Family Medicine- [address] [place] [address] Kate Qiu MD NO ADDRESS ON FILE ACUTE PHARYNGITIS (Primary Dx); ACUTE SINUSITIS NOS; HERPES SIMPLEX NOS Social History Tobacco Use Types Packs/Day Years Used Date Smoking Tobacco: Never Assessed Comments Unknown Sex and Gender Information Value Date Recorded Sex Assigned at Not on file Legal Sex Female 3:02 AM CARTOGRAPHY SUPERVISOR Gender Identity Not on file Sexual Orientation Not on file documented as of this encounter Plan of Treatment Not on file documented as of this encounter Visit Diagnoses Diagnosis Acute pharyngitis- Primary Acute sinusitis, unspecified Herpes simplex without mention of complication documented in this encounter Care Teams Postal Service Sectional Center Manager Relationship Specialty Start Date End Date Mendel Bonds MD [address] [facility] [address] [place] [address] PCP - General Family Practice 12/31/17 documented as of this encounter
--- OUTSIDE RECORDS SUMMARY | 2025-07-07 10:30 | XMS_ITS | Encounter Summary ---
Author Organization [facility] Address [address] [place] [address] Care Team Providers Care Propulsion Motor And Generator Repairer Name Role Phone Mendel Bonds MD Primary Care Provider +1 -[phone] Encounter Details Date Type Department Care Team (Latest Contact Info) Description 05/06/2003 Outpatient [facility] Medicine [address] [address] Kate Qiu MD NO ADDRESS ON FILE FEMALE GENITAL SYMPTOMS NOS (Primary Dx); DYSPAREUNIA; ABDOMINAL PAIN EPIGASTRIC; SPRAIN NEC Social History Tobacco Use Types Packs/Day Years Used Date Smoking Tobacco: Never Assessed Comments Unknown Sex and Gender Information Value Date Recorded Sex Assigned at Not on file Legal Sex Female 3:02 AM BILLET GRINDER Gender Identity Not on file Sexual Orientation Not on file documented as of this encounter Plan of Treatment Not on file documented as of this encounter Visit Diagnoses Diagnosis Unspecified symptom associated with female genital organs- Primary Dyspareunia Abdominal pain, epigastric Other specified sites of sprains and strains documented in this encounter Care Teams Propulsion Motor And Generator Repairer Relationship Specialty Start Date End Date Mendel Bonds MD [address] [address] PCP - General Family Practice 12/31/17 documented as of this encounter
--- OUTSIDE RECORDS SUMMARY | 2025-07-07 10:30 | XMS_ITS | Encounter Summary ---
Author Organization [facility] Address [address] [place] [address] Care Team Providers Care High School Professional Name Role Phone Mendel Bonds MD Primary Care Provider +1 -[phone] Encounter Details Date Type Department Care Team (Latest Contact Info) Description 08/14/2004 Outpatient Historical [facility] Medicine [place] [address] [address] Chelsea Chacon NP NO ADDRESS ON FILE ABDOMINAL PAIN UNSPEC SITE (Primary Dx); HEMATURIA; HYPERLIPIDEMIA NEC/NOS Social History Tobacco Use Types Packs/Day Years Used Date Smoking Tobacco: Never Assessed Comments Unknown Sex and Gender Information Value Date Recorded Sex Assigned at Not on file Legal Sex Female 3:02 AM ESTERS AND EMULSIFIERS SUPERVISOR Gender Identity Not on file Sexual Orientation Not on file documented as of this encounter Plan of Treatment Not on file documented as of this encounter Visit Diagnoses Diagnosis Abdominal pain, unspecified site- Primary Hematuria Other and unspecified hyperlipidemia documented in this encounter Care Teams High School Professional Relationship Specialty Start Date End Date Mendel Bonds MD [address] [phone] PCP - General Family Practice 12/31/17 documented as of this encounter
--- OUTSIDE RECORDS SUMMARY | 2025-07-07 10:30 | XMS_ITS | Encounter Summary ---
Author Organization [facility] Address [address] [place]: Epic Prelude ADT [place] [address] Care Team Providers Care Wwe Wrestler Name Role Phone Mendel Bonds MD Primary Care Provider +1 -[phone] Encounter Details Date Type Department Care Team (Late st Contact Info) Description 08/05/2002 Outpatient Historical Kate Qiu MD NO ADDRESS ON FILE Social History Tobacco Use Types Packs/Day Years Used Date Smoking Tobacco: Never Assessed Comments Unknown Sex and Gender Information Value Date Recorded Sex Assigned at Not on file Legal Sex Female 3:02 AM WOOL HANKER Gender Identity Not on file Sexual Orientation Not on file documented as of this encounter Plan of Treatment Not on file documented as of this encounter Visit Diagnoses Not on filedocumented in this encounter Care Teams Wwe Wrestler Relationship Specialty Start Date End Date Mendel Bonds MD [address] [facility] 60 [place] [phone] PCP - General Family Practice 12/31/17 documented as of this encounter
--- OUTSIDE RECORDS SUMMARY | 2025-07-07 10:30 | XMS_ITS | Encounter Summary ---
Author Organization [facility] Address [address] [place] [address] Care Team Providers Care Customer Experience Retail Clerk Name Role Phone Mendel Bonds MD Primary Care Provider +1 -[phone] Encounter Details Date Type Department Care Team (Latest Contact Info) Description 06/11/2001 Outpatient Historical [facility] General Surgery [address] [address] [address] [place] [address] [place] [address] [facility] [address] [place] [address] Abdominal pain, right upper quadrant (Primary Dx) Social History Tobacco Use Types Packs/Day Years Used Date Smoking Tobacco: Never Assessed Comments Unknown Sex and Gender Information Value Date Recorded Sex Assigned at Not on file Legal Sex Female 3:02 AM GLASS PRODUCTION MACHINE OPERATOR Gender Identity Not on file Sexual Orientation Not on file documented as of this encounter Plan of Treatment Not on file documented as of this encounter Visit Diagnoses Diagnosis Abdominal pain, right upper quadrant- Primary documented in this encounter Care Teams Customer Experience Retail Clerk Relationship Specialty Start Date End Date Mendel Bonds MD [address] [address] PCP - General Family Practice 12/31/17 documented as of this encounter
--- OUTSIDE RECORDS SUMMARY | 2025-07-07 10:30 | XMS_ITS | Encounter Summary ---
Author Organization [facility] Address [address] [place] [address] Care Team Providers Care Artificial Breeding Distributor Name Role Phone Mendel Bonds MD Primary Care Provider +1 -[phone] Encounter Details Date Type Department Care Team (Late st Contact Info) Description 01/14/2003 Inpatient Historical [facility] Juan C Landaverde MD [address] [address] INTRAMURAL LEIOMYOMA (Primary Dx) Social History Tobacco Use Types Packs/Day Years Used Date Smoking Tobacco: Never Assessed Comments Unknown Sex and Gender Information Value Date Recorded Sex Assigned at Not on file Legal Sex Female 3:02 AM MUSEUM SPECIALIST Gender Identity Not on file Sexual Orientation Not on file documented as of this encounter Plan of Treatment Not on file documented as of this encounter Visit Diagnoses Diagnosis Intramural leiomyoma of uterus- Primary documented in this encounter Care Teams Artificial Breeding Distributor Relationship Specialty Start Date End Date Mendel Bonds MD [address] [address] PCP - General Family Practice 12/31/17 documented as of this encounter
--- OUTSIDE RECORDS SUMMARY | 2025-07-07 10:30 | XMS_ITS | Encounter Summary ---
Author Organization [facility] Address [address] [place] [address] Care Team Providers Care Diplomatic Interpreter/Translator Name Role Phone Mendel Bonds MD Primary Care Provider +1 -[phone] Encounter Details Date Type Department Care Team (Latest Contact Info) Description 04/27/2002 Outpatient Historical [facility] Family Medicine- [address] [place] [address] Mann Vazquez MD [address] [facility] [address] [place] [phone] ESOPHAGEAL REFLUX (Primary Dx); STRESS REACT, EMOTIONAL Social History Tobacco Use Types Packs/Day Years Used Date Smoking Tobacco: Never Assessed Comments Unknown Sex and Gender Information Value Date Recorded Sex Assigned at Not on file Legal Sex Female 3:02 AM WIRELESS DEVELOPMENT MANAGER Gender Identity Not on file Sexual Orientation Not on file documented as of this encounter Plan of Treatment Not on file documented as of this encounter Visit Diagnoses Diagnosis Esophageal reflux- Primary Predominant disturbance of emotions documented in this encounter Care Teams Diplomatic Interpreter/Translator Relationship Specialty Start Date End Date Mendel Bonds MD [address] [facility] [address] [place] [phone] PCP - General Family Practice 12/31/17 documented as of this encounter
--- OUTSIDE RECORDS SUMMARY | 2025-07-07 10:30 | XMS_ITS | Encounter Summary ---
Author Organization [facility] Address [address] [place] [address] Care Team Providers Care Mop Handle Assembler Name Role Phone Mendel Bonds MD Primary Care Provider +1 -[phone] Encounter Details Date Type Department Care Team (Latest Contact Info) Description 01/22/2000 Outpatient Historical [facility] [address] [facility] [address] [place] [address] Kishore Marie MD NO ADDRESS ON FILE Other sign and symptom in breast (Primary Dx) Social History Tobacco Use Types Packs/Day Years Used Date Smoking Tobacco: Never Assessed Comments Unknown Sex and Gender Information Value Date Recorded Sex Assigned at Not on file Legal Sex Female 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
--- OUTSIDE RECORDS SUMMARY | 2025-07-07 10:30 | XMS_ITS | Encounter Summary ---
Author Organization [facility] Address [address] [place] [address] Care Team Providers Care Meat Pickler Name Role Phone Mendel Bonds MD Primary Care Provider +1 -[phone] Encounter Details Date Type Department Care Team (Latest Contact Info) Description 05/06/2003 Outpatient Historical [facility] Medicine [address] [phone] Chelsea Chacon NP NO ADDRESS ON FILE FEMALE GENITAL SYMPTOMS NOS (Primary Dx) Social History Tobacco Use Types Packs/Day Years Used Date Smoking Tobacco: Never Assessed Comments Unknown Sex and Gender Information Value Date Recorded Sex Assigned at Not on file Legal Sex Female 3:02 AM CAR RENTAL SERVICE ATTENDANT Gender Identity Not on file Sexual Orientation Not on file documented as of this encounter Plan of Treatment Not on file documented as of this encounter Visit Diagnoses Diagnosis Unspecified symptom associated with female genital organs- Primary documented in this encounter Care Teams Meat Pickler Relationship Specialty Start Date End Date Mendel Bonds MD [address] [phone] PCP - General Family Practice 12/31/17 documented as of this encounter
--- OUTSIDE RECORDS SUMMARY | 2025-07-07 10:30 | XMS_ITS | Encounter Summary ---
Author Organization [facility] Address [address] [place] [address] Care Team Providers Care Nursing Service Administrator Name Role Phone Mendel Bonds MD Primary Care Provider +1 -[phone] Encounter Details Date Type Department Care Team (Late st Contact Info) Description 10/01/2003 Outpatient Historical [facility] Family Medicine- [address] [place] [address] Chelsea Chacon NP NO ADDRESS ON FILE Social History Tobacco Use Types Packs/Day Years Used Date Smoking Tobacco: Never Assessed Comments Unknown Sex and Gender Information Value Date Recorded Sex Assigned at Not on file Legal Sex Female 3:02 AM PEDIATRIC REGISTERED NURSE Gender Identity Not on file Sexual Orientation Not on file documented as of this encounter Plan of Treatment Not on file documented as of this encounter Visit Diagnoses Not on filedocumented in this encounter Care Teams Nursing Service Administrator Relationship Specialty Start Date End Date Mendel Bonds MD [address] [facility] 60 [place] [address] PCP - General Family Practice 12/31/17 documented as of this encounter
--- OUTSIDE RECORDS SUMMARY | 2025-07-07 10:30 | XMS_ITS | Encounter Summary ---
Author Organization [facility] Address [address] [place] [address] Care Team Providers Care Music Intern Name Role Phone Mendel Bonds MD Primary Care Provider +1 -[phone] Encounter Details Date Type Department Care Team (Latest Contact Info) Description 10/01/2003 Outpatient Historical [facility] Family Medicine- [address] [place] [address] Kate Qiu MD NO ADDRESS ON FILE HYPERLIPIDEMIA NEC/NOS (Primary Dx) Social History Tobacco Use Types Packs/Day Years Used Date Smoking Tobacco: Never Assessed Comments Unknown Sex and Gender Information Value Date Recorded Sex Assigned at Not on file Legal Sex Female 3:02 AM KEG INSPECTOR Gender Identity Not on file Sexual Orientation Not on file documented as of this encounter Plan of Treatment Not on file documented as of this encounter Visit Diagnoses Diagnosis Other and unspecified hyperlipidemia- Primary documented in this encounter Care Teams Music Intern Relationship Specialty Start Date End Date Mendel Bonds MD [address] [facility] [address] [place] [address] PCP - General Family Practice 12/31/17 documented as of this encounter
--- OUTSIDE RECORDS SUMMARY | 2025-07-07 10:30 | XMS_ITS | Encounter Summary ---
Author Organization [facility] Address [address] [place] [address] Care Team Providers Care Premium Card Cancellation Clerk Name Role Phone Mendel Bonds MD Primary Care Provider +1 -[phone] Encounter Details Date Type Department Care Team (Latest Contact Info) Description 12/01/2003 Outpatient Historical [facility] Family Medicine- [place] [address] [place] [address] Mann Vazquez MD [address] [facility] 200 [place] [phone] ABDOMINAL PAIN EPIGASTRIC (Primary Dx); DERMATITIS NOS Social History Tobacco Use Types Packs/Day Years Used Date Smoking Tobacco: Never Assessed Comments Unknown Sex and Gender Information Value Date Recorded Sex Assigned at Not on file Legal Sex Female 3:02 AM LATHE SET UP PERSON Gender Identity Not on file Sexual Orientation Not on file documented as of this encounter Plan of Treatment Not on file documented as of this encounter Visit Diagnoses Diagnosis Abdominal pain, epigastric- Primary Contact dermatitis and other eczema, due to unspecified cause documented in this encounter Care Teams Premium Card Cancellation Clerk Relationship Specialty Start Date End Date Mendel Bonds MD [address] [address] PCP - General Family Practice 12/31/17 documented as of this encounter
--- OUTSIDE RECORDS SUMMARY | 2025-07-07 10:30 | XMS_ITS | Encounter Summary ---
Author Organization [facility] Address [address] [place] [address] Care Team Providers Care Supervisor Bakery Sanitation Name Role Phone Mendel Bonds MD Primary Care Provider +1 -[phone] Encounter Details Date Type Department Care Team (Latest Contact Info) Description 06/18/2001 Outpatient Historical [facility] General Surgery [address] [address] [address] [place] [address] [place] [address] [facility] [address] [place] [address] Other specified disorder of gallbladder (Primary Dx); Other sequelae of chronic liver disease; Peritoneal adhesions (postoperative) (postinfection) Social History Tobacco Use Types Packs/Day Years Used Date Smoking Tobacco: Never Assessed Comments Unknown Sex and Gender Information Value Date Recorded Sex Assigned at Not on file Legal Sex Female 3:02 AM LAND RESOURCE SPECIALIST Gender Identity Not on file Sexual Orientation Not on file documented as of this encounter Plan of Treatment Not on file documented as of this encounter Visit Diagnoses Diagnosis Other specified disorder of gallbladder- Primary Other sequelae of chronic liver disease Peritoneal adhesions (postoperative) (postinfection) documented in this encounter Care Teams Supervisor Bakery Sanitation Relationship Specialty Start Date End Date Mendel Bonds MD [address] [address] PCP - General Family Practice 12/31/17 documented as of this encounter
--- OUTSIDE RECORDS SUMMARY | 2025-07-07 10:30 | XMS_ITS | Encounter Summary ---
Author Organization [facility] Address [address] [place] [address] Care Team Providers Care Drilling And Production Superintendent Name Role Phone Mendel Bonds MD Primary Care Provider +1 -[phone] Encounter Details Date Type Department Care Team (Latest Contact Info) Description 05/11/[address] [facility] Family Medicine- [address] [place] [address] Leonel Horowitz DO NO ADDRESS ON FILE PEPTIC ULCER NOS-OBSTRUC (Primary Dx); CYST KIDNEY DIS, UNSPEC Social History Tobacco Use Types Packs/Day Years Used Date Smoking Tobacco: Never Assessed Comments Unknown Sex and Gender Information Value Date Recorded Sex Assigned at Not on file Legal Sex Female 3:02 AM FAX MACHINE REPAIRER Gender Identity Not on file Sexual Orientation Not on file documented as of this encounter Plan of Treatment Not on file documented as of this encounter Visit Diagnoses Diagnosis Peptic ulcer, unspecified site, unspecified as acute or chronic, without mention of hemorrhage or perforation, with obstruction- Primary Unspecified congenital cystic kidney disease documented in this encounter Care Teams Drilling And Production Superintendent Relationship Specialty Start Date End Date Mendel Bonds MD [address] [phone] PCP - General Family Practice 12/31/17 documented as of this encounter
--- OUTSIDE RECORDS SUMMARY | 2025-07-07 10:30 | XMS_ITS | Encounter Summary ---
Author Organization [facility] Address [address] [place] [address] Care Team Providers Care Spiral Binder Name Role Phone Mendel Bonds MD Primary Care Provider +1 -[phone] Encounter Details Date Type Department Care Team (Latest Contact Info) Description 08/30/2003 Outpatient Historical [facility] Family Medicine- [address] [place] [address] Kate Qiu MD NO ADDRESS ON FILE ACUTE PHARYNGITIS (Primary Dx); OTALGIA NOS Social History Tobacco Use Types Packs/Day Years Used Date Smoking Tobacco: Never Assessed Comments Unknown Sex and Gender Information Value Date Recorded Sex Assigned at Not on file Legal Sex Female 3:02 AM MEDIUM CYCLE SALESPERSON Gender Identity Not on file Sexual Orientation Not on file documented as of this encounter Plan of Treatment Not on file documented as of this encounter Visit Diagnoses Diagnosis Acute pharyngitis- Primary Otalgia, unspecified documented in this encounter Care Teams Spiral Binder Relationship Specialty Start Date End Date Mendel Bonds MD [address] [facility] [address] [place] [address] PCP - General Family Practice 12/31/17 documented as of this encounter
--- OUTSIDE RECORDS SUMMARY | 2025-07-07 10:30 | XMS_ITS | Encounter Summary ---
Author Organization [facility] Address [address] [place] [address] Care Team Providers Care Botany Laboratory Assistant Name Role Phone Mendel Bonds MD Primary Care Provider +1 -[phone] Encounter Details Date Type Department Care Team (Latest Contact Info) Description 06/27/2001 Outpatient Historical [facility] General Surgery [address] [address] [address] [place] [address] [place] [address] [facility] [address] [place] [address] Other postprocedural status(V45.89) (Primary Dx) Social History Tobacco Use Types Packs/Day Years Used Date Smoking Tobacco: Never Assessed Comments Unknown Sex and Gender Information Value Date Recorded Sex Assigned at Not on file Legal Sex Female 3:02 AM SHIPPING TRACK SUPERVISOR Gender Identity Not on file Sexual Orientation Not on file documented as of this encounter Plan of Treatment Not on file documented as of this encounter Visit Diagnoses Diagnosis Other postprocedural status(V45.89)- Primary Other postprocedural status documented in this encounter Care Teams Botany Laboratory Assistant Relationship Specialty Start Date End Date Mendel Bonds MD [address] [address] PCP - General Family Practice 12/31/17 documented as of this encounter
--- OUTSIDE RECORDS SUMMARY | 2025-07-07 10:30 | XMS_ITS | Encounter Summary ---
Author Organization [facility] Address [address] [place] [address] Care Team Providers Care Chief Analytics Officer Name Role Phone Mendel Bonds MD Primary Care Provider [phone] [phone] Encounter Details Date Type Department Care Team (Latest Contact Info) Description 01/26/2004 Outpatient Historical [facility] Family Medicine- [address] [place] [address] Chelsea Chacon NP NO ADDRESS ON FILE CONJUNCTIVITIS NOS (Primary Dx); HYPERLIPIDEMIA NEC/NOS Social History Tobacco Use Types Packs/Day Years Used Date Smoking Tobacco: Never Assessed Comments Unknown Sex and Gender Information Value Date Recorded Sex Assigned at Not on file Legal Sex Female 3:02 AM DIRECTOR HEART Gender Identity Not on file Sexual Orientation Not on file documented as of this encounter Plan of Treatment Not on file documented as of this encounter Visit Diagnoses Diagnosis Conjunctivitis unspecified- Primary Conjunctivitis, unspecified Other and unspecified hyperlipidemia documented in this encounter Care Teams Chief Analytics Officer Relationship Specialty Start Date End Date Mendel Bonds MD [address] [address] PCP - General Family Practice 12/31/17 documented as of this encounter
--- OUTSIDE RECORDS SUMMARY | 2025-07-07 10:30 | XMS_ITS | Encounter Summary ---
Author Organization [facility] Address [address] [place] [address] Care Team Providers Care Quahogger Name Role Phone Mendel Bonds MD Primary Care Provider [phone] [phone] Encounter Details Date Type Department Care Team (Latest Contact Info) Description 10/05/2003 Outpatient Historical [facility] [address] [place] [address] Leonel Horowitz DO NO ADDRESS ON FILE ACUTE PHARYNGITIS (Primary Dx); ACUTE SINUSITIS NOS; POSTMENOPAUSAL HORMONAL REPLACMT; HYPERLIPIDEMIA NEC/NOS Social History Tobacco Use Types Packs/Day Years Used Date Smoking Tobacco: Never Assessed Comments Unknown Sex and Gender Information Value Date Recorded Sex Assigned at Not on file Legal Sex Female 3:02 AM CHECKER CASHIER Gender Identity Not on file Sexual Orientation Not on file documented as of this encounter Plan of Treatment Not on file documented as of this encounter Visit Diagnoses Diagnosis Acute pharyngitis- Primary Acute sinusitis, unspecified Need for prophylactic hormone replacement therapy (postmenopausal) Other and unspecified hyperlipidemia documented in this encounter Care Teams Quahogger Relationship Specialty Start Date End Date Mendel Bonds MD [address] [facility] [address] [place] [address] PCP - General Family Practice 12/31/17 documented as of this encounter
--- OUTSIDE RECORDS SUMMARY | 2025-07-07 10:30 | XMS_ITS | Encounter Summary ---
Author Organization [facility] Address [address] [place] [address] Care Team Providers Care Live In Housekeeper Name Role Phone Mendel Bonds MD Primary Care Provider [phone] [phone] Encounter Details Date Type Department Care Team (Latest Contact Info) Description 10/04/2003 Outpatient Historical [facility] Juan C Landaverde MD [address] [address] SCREENING MAL NEOP-CERVIX (Primary Dx) Social History Tobacco Use Types Packs/Day Years Used Date Smoking Tobacco: Never Assessed Comments Unknown Sex and Gender Information Value Date Recorded Sex Assigned at Not on file Legal Sex Female 3:02 AM FIRM ADMINISTRATOR Gender Identity Not on file Sexual Orientation Not on file documented as of this encounter Plan of Treatment Not on file documented as of this encounter Visit Diagnoses Diagnosis Screening for malignant neoplasm of the cervix- Primary documented in this encounter Care Teams Live In Housekeeper Relationship Specialty Start Date End Date Mendel Bonds MD [address] [address] PCP - General Family Practice 12/31/17 documented as of this encounter
--- OUTSIDE RECORDS SUMMARY | 2025-07-07 10:30 | XMS_ITS | Encounter Summary ---
Author Organization [facility] Address [address] [place] [address] Care Team Providers Care Environmental Scientists Name Role Phone Mendel Bonds MD Primary Care Provider [phone] [phone] Encounter Details Date Type Department Care Team (Late st Contact Info) Description 01/04/2004 Outpatient Historical [facility] Medicine [address] [phone] Social History Tobacco Use Types Packs/Day Years Used Date Smoking Tobacco: Never Assessed Comments Unknown Sex and Gender Information Value Date Recorded Sex Assigned at Not on file Legal Sex Female 3:02 AM SOYFREEZE OPERATOR Gender Identity Not on file Sexual Orientation Not on file documented as of this encounter Plan of Treatment Not on file documented as of this encounter Visit Diagnoses Not on filedocumented in this encounter Care Teams Environmental Scientists Relationship Specialty Start Date End Date Mendel Bonds MD [address] [address] PCP - General Family Practice 12/31/17 documented as of this encounter
--- OUTSIDE RECORDS SUMMARY | 2025-07-07 10:30 | XMS_ITS | Encounter Summary ---
Author Organization [facility] Address [address] [place] [address] Care Team Providers Care Classified Copy Control Clerk Name Role Phone Mendel Bonds MD Primary Care Provider +1 [phone] Encounter Details Date Type Department Care Team (Latest Contact Info) Description 10/01/2003 Outpatient Historical [facility] Family Medicine- [address] [place] [address] Chelsea Chacon NP NO ADDRESS ON FILE HYPERLIPIDEMIA NEC/NOS (Primary Dx) Social History Tobacco Use Types Packs/Day Years Used Date Smoking Tobacco: Never Assessed Comments Unknown Sex and Gender Information Value Date Recorded Sex Assigned at Not on file 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
--- OUTSIDE RECORDS SUMMARY | 2025-07-07 10:30 | XMS_ITS | Encounter Summary ---
Author Organization [facility] Address [address] [place] [address] Care Team Providers Care Nutritionists Name Role Phone Mendel Bonds MD Primary Care Provider [phone] [phone] Encounter Details Date Type Department Care Team (Latest Contact Info) Description 08/02/[address] 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
--- OUTSIDE RECORDS SUMMARY | 2025-07-07 10:30 | XMS_ITS | Encounter Summary ---
Author Organization [facility] Address [address] [place] [address] Care Team Providers Care Supervisor Prep Name Role Phone Menedl Bonds MD Primary Care Provider [phone] [phone] Encounter Details Date Type Department Care Team (Latest Contact Info) Description 05/08/2002 Outpatient Historical [facility] Medicine [place] [address] [address] Mann Vazquez MD [address] [facility] [address] [place] [phone] ABDOMINAL PAIN EPIGASTRIC (Primary Dx); HELICOBACTER PYLORI INFECTION; ABDOMINAL PAIN UNSPEC SITE Social History Tobacco Use Types Packs/Day Years Used Date Smoking Tobacco: Never Assessed Comments Unknown Sex and Gender Information Value Date Recorded Sex Assigned at Not on file 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 pylori) Abdominal pain, unspecified site documented in this encounter Care Teams Supervisor Prep Relationship Specialty Start Date End Date Mendel Bonds MD [address] [address] PCP - General Family Practice 12/31/17 documented as of this encounter
--- OUTSIDE RECORDS SUMMARY | 2025-07-07 10:30 | XMS_ITS | Encounter Summary ---
Author Organization [facility] Address [address] [place] [address] Care Team Providers Care Customer Support Advisor Name Role Phone Mendel Bonds MD Primary Care Provider [phone] [phone] Encounter Details Date Type Department Care Team (Latest Contact Info) Description 12/17/2000 Outpatient Historical [facility] [address] [facility] [address] [place] [address] Kishore Marie MD NO ADDRESS ON FILE Other sign and symptom in breast (Primary Dx) Social History Tobacco Use Types Packs/Day Years Used Date Smoking Tobacco: Never Assessed Comments Unknown Sex and Gender Information Value Date Recorded Sex Assigned at Not on file 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
--- NOTE | 2025-07-07 10:39 | ED_ITS ---
HPI - General Adult 2 General: Chief complaint: General Medical Stated complaint: chest pain Time Seen by Provider: 07/07/25 10:24 Source: patient and EMS Mode of arrival: EMS Limitations: no limitations History of Present Illness: 69-year-old female has a history of hype rtension states this morning her blood pressure was up in the 200s and she was feeling flushed and anxious. She states she has also been under extreme stress states that her son has been in law troubles and has been in and out of court and it is causing her extreme distress and stress. She states she believes this is causing her hypertension she denied having any chest pain denies any chest pain currently did receive a nitro and route she denies any vomiting or diarrhea or fevers. Related Data Home Medications ?Medication ?Instructions ?Recorded ?Confirmed citalopram 40 mg tablet 40 mg PO DAILY 07/07/2510/31 fluticasone propionate 50 2 spray intranasal DAILY PRN 07/07/25 07/07/25 mcg/actuation nasal allergies spray,suspension (Flonase Allergy Relief) Previous Rx's ?Medication ?Instructions ?Recorded sucralfate 1 gram tablet (Carafate) 1 g PO BID reflux/ heartburn #180 11/10/24 tabs valacyclovir 1 gram tablet See Rx Instructions PO GRETTA Y #30 11/10/24 tabs rosuvastatin 10 mg tablet (Crestor) 10 mg PO DAILY #90 tabs 12/11/24 ketoconazole 2 % topical cream 1 applic topical BID 14 days #30 06/17/25 grams losartan 50 mg tablet 50 mg PO DAILY #30 tabs 10/31 Allergies Allergy/AdvReac Type Severity Reaction Status Date / Time ceftriaxone (From Rocephin) Allergy Intermediate swelling Verified 06/17/25 15:52 clarithromycin (From Biaxin) Allergy RASH Verified 06/17/25 15:52 [facility] ED 2 [facility]: Medical History (Updated 07/07/25 @ 13:03 by Rhea Huff MD) Dermatitis Skin rash Flu-like symptoms Left upper quadrant pain Abdominal pain Urinary tract infection Colon cancer screening Acute bacterial sinusitis Breast cancer screening by mammogram Rash of face Anxiety and depression Herpes zoster virus infection of face and ear nerves Cough Shortness of breath Otitis media Abnormal mammogram of right breast Lower respiratory infection Mixed hyperlipidemia Hypertension screen Medication management 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 Viral respiratory infection Primary HSV infection of mouth Elevated hemoglobin A1c Melanoma Fatigue GERD (gastroesophageal reflux disease) Hypertension Depression Vitamin D deficiency Surgical History (Updated 05/12/25 @ 09:33 by LEE Salmeron) S/P left knee arthroscopy Status post cholecystectomy Status post hysterectomy Status post rotator cuff repair Status post tubal ligation Family History Other Diabetes Hypertension Social History Smoking and tobacco/nicotine status: never used tobacco/nicotine Alcohol intake: never Substance/Drug Use: never Physical Exam 2 Const: COMMON NORMALS: no acute distress, patient oriented x3 and healthy appearing HENMT: COMMON NORMALS: normocephalic and atraumatic HEAD & SCALP: n ormocephalic and atraumatic Eye: COMMON NORMALS: conjunctivae normal CONJUNCTIVA: Yes conjunctivae normal Neck/C-Spine: COMMON NORMALS: full ROM and supple Chest: COMMONS NORMALS: normal inspection of the chest Resp: COMMON NORMALS: normal respiratory effort, No retractions, No use of accessory muscles and clear to auscultation bilaterally AUSCULTATION: clear to auscultation bilaterally Cardio: COMMON NORMALS: regular rate, regular rhythm and No murmurs present (Cardio) RATE: regular rate RHYTHM: regular rhythm GI: COMMON NORMALS: Normal to inspection, nondistended, normoactive bowel sounds present, Soft to palpation, non-tender and no masses PALPATION: Yes Soft to palpation Extremity: COMMON NORMALS: normal to inspection and full ROM Neuro: COMMON NORMALS: patient oriented x3, moves all extremities and no focal motor deficits Psych: COMMON NORMALS: mental status grossly normal, Normal thought process present and cooperative THOUGHT PROCESS: Normal thought process present Skin: COMMON NORMALS: no rashes or lesions noted and no wounds GENERAL SKIN EXAM: no rashes or lesions noted Course 2 Vital Signs: Vital signs: Vital Signs Temperature 98.2 F 07/07/25 10:29 Pulse Rate 83 07/07/25 12:00 Respiratory Rate 18 07/07/25 10:29 Blood Pressure 174/76 07/07/25 12:00 Pulse Oximetry 95 07/07/25 12:00 Oxygen Delivery Me thod Room Air 07/07/25 12:00 Clincial Decision Support The following clinical decision support tools were used to aid in care of the patient HEART Score -> History: Slightly Suspicous, EKG: Normal, Age: 65 or more yrs, Risk Factors: 1 or 2 Risk Factors, Troponin: Baseline Trop <16 ng/L. Resulting HEART Score: 3. MDM - General Adult Medical Decision Making Patient presents for hypertension also feeling flushed. She never had chest pain differential includes essential hypertension along with stress ACS. Patient has no signs acute coronary syndrome she had had no real chest pain initial repeat troponin are negative her initial repeat EKGs were normal here with normal sinus rhythm is no signs of ST elevation. Chest x-ray showed no acute abnormalities. Patient's electrolytes and CBC were normal as well. Likely essential hypertension along with stress at home. She had felt improved here patient did review her meds is on losartan 25 mg will increase the dose to 50 mg. I informed her she needs to take a log of her blood pressure morning noon and night and keep the log and follow-up with her PCP in 5 to 7 days. I did inform her of her labs and this plan and she is to follow-up as scheduled and return if worsening she understands and agrees to plan. Medical Records I reviewed the patient's medical records. Lab Data I reviewed the patient's lab results. 07/07/25 10:50 07/07/25 10:50 Radiology Impressions Chest X-Ray 07/07/25 10:45 IMPRESSION: Stable chest with no acute abnormality. Laboratory Results WBC 6.20 10^3/uL (3.29-11.43) 07/07/25 10:50 RBC 4.70 10^6/uL (3.85-5.65) 07/07/25 10:50 Hgb 13.60 g/dL (11.27-16.99) 07/07/25 10:50 Hct 42.4 % (36-47) 07/07/25 10:50 MCV 90.2 fl (85-98) 07/07/25 10:50 MCH 28.9 pg (27-33) 07/07/25 10:50 MCHC 32.1 g/dL (30-55) 07/07/25 10:50 RDW 13.2 % (12.1-15.1) 07/07/25 10:50 Plt Count 169 10^3/cmm (157-399) 07/07/25 10:50 MPV 10.7 fL (7.4-10.4) H 07/07/25 10:50 Neut % (Auto) 70.7 % 07/07/25 10:50 Lymph % (Auto) 19.7 % 07/07/25 10:50 Clay % (Auto) 7.3 % 07/07/25 10:50 Eos % (Auto) 1.3 % 07/07/25 10:50 Baso % (Auto) 0.8 % 07/07/25 10:50 Neut # (Auto) 4.39 10^3/uL (1.8-7.7) 07/07/25 10:50 Lymph # (Auto) 1.2 10^3/uL (0.8-4.8) 07/07/25 10:50 Clay # (Auto) 0.5 10^3/uL (0.2-0.9) 07/07/25 10:50 Eos # (Auto) 0.1 10^3/uL (0.0-0.8) 07/07/25 10:50 Baso # (Auto) 0.1 10^3/uL (0.0-0.1) 07/07/25 10:50 Nucleated RBC % (auto) 0 % 07/07/25 10:50 Nucleated RBCs # 0.0 /100WBC 07/07/25 10:50 Sodium 143 mmol/L (136-145) 07/07/25 10:50 Potassium 3.8 mmol/L (3.5-5.1) 07/07/25 10:50 Chloride 107 mmol/L (98-107) 07/07/25 10:50 Carbon Dioxide 26 mmol/L (22-29) 07/07/25 10:50 Anion Gap 13.8 (5-19) 07/07/25 10:50 BUN 6 mg/dL (8-23) L 07/07/25 10:50 Creatinine 0.6 mg/dL (0.5-0.9) 07/07/25 10:50 GFR Calculation 99.1 mL/min (90-130) 07/07/25 10:50 Glucose 98 mg/dL (65-115) 07/07/25 10:50 Calculated Osmolality 294 mOsm/kg (285-295) 07/07/25 10:50 Calcium 9.0 mg/dL (8.5-10.5) 07/07/25 10:50 Total Bilirubin 0.3 mg/dL (0.15-1.2) 07/07/25 10:50 AST 13 U/L (0-32) 07/07/25 10:50 ALT 15 U/L (0-33) 07/07/25 10:50 Alkaline Phosphatase 78 U/L (35-105) 07/07/25 10:50 Troponin T Baseline 8 ng/L (0-10) 07/07/25 10:50 Troponin T 120 Minute 9.64 ng/L (0-10) 07/07/25 12:19 Delta Troponin T 1.64 ABS# (0-10) 07/07/25 12:19 Total Protein 6.1 g/dL (6.6-8.7) L 07/07/25 10:50 Albumin 4.2 g/dL (3.5-5.2) 07/07/25 10:50 Globulin 1.9 g/dL (1.3-4.6) 07/07/25 10:50 Lipase 57 U/L (13-60) 07/07/25 10:50 All radiology interpretation(s) finalized by discharge EKG Data EKG 1: I personally reviewed and interpreted this EKG as follows: EKG interpretation date: 07/07/25 EKG interpretation time: 10:28 Interpretation: nsr hr [address] elevation qrs 100 qtc 403 Computer generated interpretation: Chest X-Ray 07/07/25 10:45 IMPRESSION: Stable chest with no acute abnormality. EKG 2: I personally reviewed and interpreted this EKG as follows: EKG interpretation date: 07/07/25 EKG interpretation time: 12:15 Interpretation: nsr hr [address] elevation qrs 104 qtc 429 Computer generated interpretation: Chest X-Ray 07/07/25 10:45 IMPRESSION: Stable chest with no acute abnormality. Discharge Plan Discharge Patient Disposition: Home Clinical Impression: Hypertension Qualifiers: Hypertension type: unspecified Qualified Code(s): I10 - Essential (primary) hypertension Condition: Stable Prescriptions: New losartan 50 mg tablet 50 mg PO DAILY Qty: 30 0RF Discontinued losartan 25 mg tablet 25 mg PO DAILY No Action rosuvastatin [Crestor] 10 mg tablet 10 mg PO DAILY Qty: 90 1RF valacyclovir 1 gram tablet See Rx Instructions PO DAILY Qty: 30 5RF Rx Instructions: Take 1 tablet by mouth daily during outbreak, and as needed. sucralfate [Carafate] 1 gram tablet 1 g PO BID Qty: 180 2RF ketoconazole 2 % cream 1 applic topical BID 14 Days Qty: 30 1RF citalopram 40 mg tablet 40 mg PO DAILY fluticasone propionate [Flonase Allergy Relief] 50 mcg/actuation spray,suspension 2 spray INTRANASAL DAILY PRN (Reason: allergies) Rx Instructions: administer into each nostril for 2 weeks, then 1 spray for 2 weeks, then PRN Discharge Orders: Discharge ED (Routine); Ordered 07/07/25 Ordered By: Rhea Huff Referrals: Darek Rogers FNP [Primary Care Provider, [facility]] - 4-7 days Discharge Diet: Advance as tolerated Discharge Activity: Resume usual activity Patient Instructions: Hypertension (ED) Print Language: Lao Coding Level of Care Code ED Demand Planner for Shashi Panda
--- NOTE | 2025-07-07 10:45 | XR_ITS ---
WS: [id number] XR chest 1V portable [id number] REASON FOR EXAM: cp FINDINGS: The chest is relatively unchanged compared to the examination of 06/28/2016. The heart and the mediastinum are within normal limits. Calcified granulomatous disease bilaterally. No acute pulmonary parenchymal or pleural abnormality. Moderate degenerative spondylosis in the mid and lower thoracic spine. Previous rotator cuff tendon repair right shoulder. XR/XR chest 1V portable [id number] IMPRESSION: Stable chest with no acute abnormality.
--- NOTE | 2025-07-07 10:45 | ECG_ITS ---
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 Measurements Intervals [place] Rate: 77 P: 33 MT: 145 QRS: 3 QRSD: 100 T: 58 QT: 371 QTc: 421 Interpretive Statements SINUS RHYTHM LOW QRS VOLTAGE IN PRECORDIAL LEADS [QRS DEFLECTION < 1.0 mV IN CHEST LEADS] POSSIBLE ANTERIOR MYOCARDIAL INFARCTION , PROBABLY OLD [30 ms Q WAVE IN V3/V4, OR R < 0.2 mV IN V4] No previous ECG available for comparison Electronically Signed On 07-08-2025 08:37:06 CDT by Nikko Hendricks M.D. [id number]
[2025-07-07] MEDS: hyDRALAzine 20 mg/mL INJ 1 mL 10 MG IVP (10:51)
[2025-07-07 10:59] VITALS: BP 180/88; PULSE 90; O2SAT 98
[2025-07-07 11:02] LABS: Hematocrit 42.4 % (36-47); Hemoglobin 13.60 g/dL (11.27-16.99); Mean Corpuscular HGB Conc 32.1 g/dL (30-55); Mean Corpuscular Hemoglobin 28.9 pg (27-33); Mean Corpuscular Volume 90.2 fl (85-98); Nucleated Red Blood Cells % 0 %; Platelet Count 169 10^3/cmm (157-399); Red Blood Count 4.70 10^6/uL (3.85-5.65); White Blood Count 6.20 10^3/uL (3.29-11.43)
[2025-07-07 11:22] LABS: Troponin(5th) Baseline 8 ng/L (0-10)
[2025-07-07 11:28] LABS: Alanine Aminotransferase 15 U/L (0-33); Albumin Level 4.2 g/dL (3.5-5.2); Alkaline Phosphatase 78 U/L (35-105); Anion Gap 13.8 (5-19); Aspartate Amino Transferase 13 U/L (0-32); Blood Urea Nitrogen 6 mg/dL (8-23); Calcium 9.0 mg/dL (8.5-10.5); Carbon Dioxide 26 mmol/L (22-29); Chloride 107 mmol/L (98-107); Creatinine Clr Calc Pharmacy 67.6544; Globulin 1.9 g/dL (1.3-4.6); Glucose 98 mg/dL (65-115); Lipase 57 U/L (13-60); Osmolality Calculated 294 mOsm/kg (285-295); Potassium 3.8 mmol/L (3.5-5.1); Sodium 143 mmol/L (136-145); Total Protein 6.1 g/dL (6.6-8.7)
[2025-07-07 11:31] VITALS: BP 174/82; PULSE 85; O2SAT 97
[2025-07-07 12:00] VITALS: BP 174/76; PULSE 83; O2SAT 95
--- NOTE | 2025-07-07 12:31 | PC.NURSE ---
Pt BP 161/79 at 1230, Dr. Huff notified and stated to hold hydralazine. Medication not given.
--- NOTE | 2025-07-07 12:45 | ECG_ITS ---
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 Measurements Intervals [place] Rate: 77 P: 24 WY: 124 QRS: 6 QRSD: 104 T: 46 QT: 397 QTc: 450 Interpretive Statements SINUS RHYTHM LOW QRS VOLTAGE IN PRECORDIAL LEADS [QRS DEFLECTION < 1.0 mV IN CHEST LEADS] Compared to ECG 07/07/2025 10:28:27 Myocardial infarct finding no longer present Electronically Signed On 07-08-2025 08:56:22 CDT by Nikko Hendricks M.D. [email or web address] [id number]
[2025-07-07 12:58] LABS: Troponin 5 2HR 9.64 ng/L (0-10); Troponin 5 2HR Delta 1.64 ABS# (0-10)
[2025-07-07 13:32] VITALS: BP 191/81; PULSE 78; O2SAT 97
== END 2025-07-07 13:33 | disposition home or self-care (01) ==
PROVIDERS: Emergency Provider Emergency Medicine; PCP Nurse Practitioner Family
DX: I10 Essential (primary) hypertension (principal); E78.2 Mixed hyperlipidemia; Z85.820 Personal history of malignant melanoma of skin
CPT/HCPCS: 36415; 71045; 80053; 83690; 84484; 85025; 93005; 96374; 99285; J0360

== ENCOUNTER 2025-08-23 13:59 | Outpatient (CLI) | payer MEDICARE, SELFPAY ==
--- NOTE | 2025-08-23 14:04 | MM_ITS ---
WS: [id number] BILATERAL 3D TOMOSYNTHESIS DIGITAL SCREENING MAMMOGRAPHY WITH CAD CLINICAL INFORMATION: SCREENING HISTORY: Screening mammogram. No current complaints. COMPARISON: 2022 TECHNIQUE: Bilateral CC and MLO views. FINDINGS: Scattered fibroglandular densities bilaterally. No suspicious focal mass, asymmetry, calcifications, or architectural distortion. No evidence of malignancy. Stable nodule outer LEFT breast with adjacent biopsy clip MM/MM scr BI tomosynthesis [id number] IMPRESSION: DENSITY: There are scattered areas of fibroglandular density. BI-RADS: 2 - Benign. FOLLOW UP: 1 Year Follow-up Recommend return to annual screening mammography.
== END 2025-08-23 14:00 | disposition home or self-care (01) ==
LOC: RAD 14:00
PROVIDERS: PCP Nurse Practitioner Family; Visit Provider Nurse Practitioner Family
DX: Z12.31 Encounter for screening mammogram for malignant neoplasm of breast (principal); R92.323 Mammographic fibroglandular density, bilateral breasts; N63.21 Unspecified lump in the left breast, upper outer quadrant; Z96.89 Presence of other specified functional implants
CPT/HCPCS: 77063; 77067

== ENCOUNTER → 2025-09-21 08:44 | Outpatient (BNVA) | payer MEDICARE, SELFPAY | PROVIDERS: PCP Nurse Practitioner Family; Visit Provider Nurse Practitioner Family | DX: L29.9 Pruritus, unspecified (principal) | CPT/HCPCS: 80053; 85651; 86038; 86140; 86705; 86706; 87340 ==